=== PATIENT | male | born 1945 | race Caucasian/White ===

== ENCOUNTER 2019-03-11 07:51 | Day surgery (SDC) | payer MEDICARE, OTHER, SELFPAY ==
[2019-03-06 14:50] VITALS: BMI 22.8
[2019-03-11] VITALS (13 sets, daily range): BP systolic 99–150; BP diastolic 62–99; PULSE 69–92; RESP 10–20; TEMP 36.1–36.6; O2SAT 97–100; BMI 22.4
[2019-03-11] MEDS: LACTATED RINGERS 1,000 ML 42 ML IV ×2 (08:23→10:23)
--- NOTE | 2019-03-11 09:09 | PM.PREOP ---
Pre-operative Note Interval Note History & Physical reviewed/Exam performed by Physician: Yes Changes to H&P: No
[2019-03-11] MEDS: CEFAZOLIN 2 GM/100 ML FROZ.PIGGY IV (09:30)
--- NOTE | 2019-03-11 10:03 | SUR.OPER ---
Supine on padded OR bed, head on pillow, arms padded and tucked at side, legs uncrossed, safety belt at thigh, tape over blanket over lower legs .
[2019-03-11] MEDS: BUPIVACAINE 0.25% (PF) VIAL 30 ML INJ (10:08)
--- NOTE | 2019-03-11 11:02 | PM.OP.1 ---
Operative Date/Time/Diagnoses Date of procedure: 03/11/19 Time of procedure: 11:02 Pre-op diagnosis: Right inguinal hernia Post-op diagnosis: same Procedure & Clinicians Procedure: Laparoscopic transabdominal preperitoneal repair of right inguinal hernia with mesh Same procedure as scheduled: Yes Indications: 73-year-old male with a symptomatic right inguinal hernia presents for elective repair Surgeon: Red Carlson Click Yes if Unassisted: No Anesthesia Type: General Operative Notes Findings: Direct and indirect right inguinal hernia no left inguinal hernia Specimen(s): none sent Estimated Blood Loss (mL): 10 Procedure in detail: The patient was brought to the operating room and placed supine on the table. Bilateral sequential compression devices were applied. General anesthesia was induced and they were intubated with an endotracheal tube. A sanchez cath was placed in sterile fashion. They received 2 g ancef prior to skin incision. They were prepped and draped in sterile fashion. A time out was performed to ensure the correct patient, procedure and necessary equipment within the operating room. The skin was infiltrated with 0.25% bupivicaine. A 5 mm infra umbilical midline incision was made. The umbilical stalk was elevated the fascia sharply incised and the abdomen entered traumatically. A 5mm port was placed and pneumoperitoneum was established at 15mm Hg. Insepction of the abdomen demonstrated no evidence of injury upon entry. A cutdown was made on the right lateral abdominal wall at the level of the umbilicus and a 10 mm balloon trocar was then placed through the incision. 5 mm incision was placed in the left lateral position the level of the umbilicus and a 5 mm trocar was then placed through this. A right direct and indirect hernia was observed. There was no major left inguinal hernia. The right vas deferns the spermatic vessels were identified and protected. The peritoneum 4 cm superior to the deep inguinal ring between the medial umbilical ligament and the anterior superior iliac spine was incised. The peritoneal flap was retracted and the preperitoneal tissue was dissected off the flap beginning lateral to the inferior epigastric artery and towards the ASIS and to posterior limit of the psoas muscle to develop the lateral aspect of the pocket. Next the peritoneum medial to the inferior epigastric was mobilized towards the median umbilical ligament to develop the medial aspect of the pocket and the direct defect was reduced. The space of Retzius was fully dissected such that the Jordi's ligmament and the pubic symphysis were visible. Next, the peritoneum was mobilized off the the spermatic vessels and vas deferns and fully exposed to the point where the vas deferens intersects with the medial umbilical ligament and the indirect hernia was reduced. A medium Bard 3D Max mesh was then placed into the abdomen and positioned such that the myopectineal orifice was completely covered with good overlap on all sides. The mesh was anchored to the pubic tubercle and to Jordi?s ligament. The peritoneal flap was then repositioned back to its original position and tacks were used to anchor it in position such that no bowel could herniate into the preperitoneal space. The area was examined for hemostasis. The 5mm trocars were removed under direct visualization and pneumoperitoneum was deflated through the umbilical trocar, The fascia at the right lateral incision was closed with 0-Vicryl in figure of 8 fashion, skin closed with 4-0 Monocyl followed by Dermabond. The sponge and instrument count at the end of the case was correct. Both testicles were entirely within the scrotum at the end of the case. The patient emerged from anesthsia was extubated and transferred to recovery in stable condition. Complications: none Post-operative Condition: stable Disposition: same day surgery
[2019-03-11] MEDS: fentaNYL 100 MCG/2 ML INJ IV ×2 (11:06→11:14)
[2019-03-11] MEDS: ONDANSETRON 4 MG/2 ML INJ IV (11:10)
[2019-03-11] MEDS: OXYCODONE/ACETAMINOPHEN 5/325 TABLET 1 TAB PO ×2 (11:40→12:40)
--- NOTE | 2019-03-11 11:50 | SUR.PHASEII ---
pt arrived to phase II via stretcher. pt sitting up and drinking water. Drsg's to surgical site observed to be c/d/i. pt denies any nausea this time. pt rating his pain 5/10 at this time and reports it is tolerable. bed in lowest position and call light given to pt.
--- NOTE | 2019-03-11 12:49 | SUR.PHASEII ---
1240 Rx given prior to discharge, pt states that pain level is increasing for a 2-3 to 4-5. Calm, stable, relaxed. No questions from patient or spouse. Dr. Carlson spoke with pt and spouse.
--- NOTE | 2019-03-11 12:55 | SUR.PHASEII ---
1210 Assumed care from Roberta Barron RN. Pt awake, stable, tolerating PO well, Feels like he is ready to discharge, would like another pain pill, waiting for prescription for post-op pain med.
== END 2019-03-11 12:45 | disposition home or self-care (01) ==
PROVIDERS: Visit Provider Surgery
PROC: 0YQ54ZZ Repair Right Inguinal Region, Percutaneous Endoscopic Approach (ICD-10-PCS; CPT 49650; principal; 2019-03-11 09:15)
DX: K40.90 Unilateral inguinal hernia, without obstruction or gangrene, not specified as recurrent (principal)
CPT/HCPCS: 49650; C1781; J0690; J1100; J2250; J2405; J2704; J3010

== ENCOUNTER → 2020-06-24 14:33 | Outpatient (CLI) | payer MEDICARE, OTHER, SELFPAY ==
[2020-06-24] MEDS: COVID-19 VACC, Ad26(JANSSEN)/PF 0.5 ML IM (14:56)
== END ==
PROVIDERS: Visit Provider Internal Medicine
DX: Z23 Encounter for immunization (principal)
CPT/HCPCS: 0031A; 91303

== ENCOUNTER → 2022-04-17 14:22 | Outpatient (CLI) | payer MEDICARE, OTHER, SELFPAY ==
[2022-04-17 15:19] LABS: Influenza A - CEPHEID Flu A NEGATIVE (NEGATIVE); Influenza B - CEPHEID Flu B NEGATIVE (NEGATIVE); Respiratory Syncytial Virus Negative (Negative)
[2022-04-17 15:24] LABS: COVID-19 CEPHEID 4-PLEX PCR Negative (Negative)
== END ==
PROVIDERS: Visit Provider Registered Nurse
DX: R05.1 Acute cough (principal)
CPT/HCPCS: 0241U

== ENCOUNTER → 2022-05-10 14:22 | Outpatient (CLI) | payer MEDICARE, OTHER, SELFPAY ==
[2022-05-10 14:56] LABS: Add Manual Diff / Slide Review NO; Basophils Absolute Auto 100 /uL (0-100); Basophils Percent Auto 1.1 % (0-2); Eosinophils Absolute Auto 200 /uL (0-450); Eosinophils Percent Auto 2.1 % (2-4); Hematocrit 39.8 % (41-53); Hemoglobin 13.3 g/dL (13.5-17.5); Lymphocytes Absolute Auto 1200 /uL (1100-4500); Lymphocytes Percent Auto 16.5 % (25-40); Mean Corpuscular HGB Conc 33.4 % (30-36); Mean Corpuscular Hemoglobin 28.9 PG (26-34); Mean Corpuscular Volume 86.7 fL (80-100); Monocytes Absolute Auto 600 /uL (0-900); Monocytes Percent Auto 7.6 % (3-14); Neutrophils Absolute Auto 5500 /uL (1500-7000); Neutrophils Percent Auto 72.7 % (50-75); Platelet Count 318 X10^3/uL (150-400); Red Blood Cell Count 4.59 X10^6/uL (4.5-5.9); Red Cell Distribution Width 13.5 % (11.6-14.8); White Blood Cell Count 7.6 X10^3/uL (4.5-11.0)
[2022-05-10 15:27] LABS: Hemoglobin A1C% w Est Avg Glu 5.3 % (4.0-6.0)
[2022-05-10 15:28] LABS: Alanine Aminotransferase 24 IU/L (<50); Albumin Globulin Ratio 1.2 (1.0-2.8); Alkaline Phosphatase 122 U/L (38-126); Aspartate Aminotransferase 26 IU/L (17-59); BUN Creatinine Ratio 28.9 (6-22); Bilirubin Total 0.5 mg/dL (0.2-1.3); Blood Urea Nitrogen 22 mg/dL (9-20); Calcium 8.5 mg/dL (8.4-10.2); Carbon Dioxide 28 mmol/L (22-32); Chloride 95 mmol/L (98-107); Cholesterol 166 mg/dL (140-199); Estimated Glomerular Filt Rate > 60 mL/min (>60); Globulin 3.3 g/dL (1.7-4.1); Glucose 93 mg/dL (80-110); HDL Cholesterol 29 mg/dL (40-60); HEMOLYSIS < 15 (0-50); LDL Cholesterol Calculated 103 mg/dL (<100); Potassium 4.7 mmol/L (3.4-5.1); Sodium 132 mmol/L (137-145); Total Protein 7.3 g/dL (6.3-8.2); Triglycerides 170 mg/dL (35-150)
[2022-05-10 16:06] LABS: TSH w/ Reflex to FT4 < 0.02 uIU/mL (0.47-4.68)
[2022-05-10 16:42] LABS: Free T4, Direct Thyroxine 1.64 ng/dL (0.78-2.19)
== END ==
PROVIDERS: PCP Family Medicine; Referring Provider Family Medicine; Visit Provider Family Medicine
DX: E03.8 Other specified hypothyroidism (principal); Z13.1 Encounter for screening for diabetes mellitus; Z13.220 Encounter for screening for lipoid disorders; Z00.00 Encounter for general adult medical examination without abnormal findings; R53.83 Other fatigue
CPT/HCPCS: 36415; 80053; 80061; 83036; 84439; 84443; 85025

== ENCOUNTER → 2022-06-19 11:28 | Outpatient (CLI) | payer MEDICARE, OTHER, SELFPAY | PROVIDERS: PCP Family Medicine; Visit Provider Family Medicine | DX: Z12.5 Encounter for screening for malignant neoplasm of prostate (principal); N40.0 Benign prostatic hyperplasia without lower urinary tract symptoms; E03.8 Other specified hypothyroidism; R31.9 Hematuria, unspecified; Z00.00 Encounter for general adult medical examination without abnormal findings; R30.0 Dysuria | CPT/HCPCS: 87086 ==

== ENCOUNTER → 2022-06-19 11:57 | Outpatient (CLI) | payer MEDICARE, OTHER, SELFPAY ==
[2022-06-19 13:46] LABS: TSH w/ Reflex to FT4 0.09 uIU/mL (0.47-4.68)
[2022-06-19 14:13] LABS: Free T4, Direct Thyroxine 1.51 ng/dL (0.78-2.19)
[2022-06-19 16:10] LABS: Prostate Specific Antigen Scrn 170 ng/mL (0.1-4.0)
== END ==
PROVIDERS: PCP Family Medicine; Referring Provider Family Medicine; Visit Provider Family Medicine
DX: Z00.00 Encounter for general adult medical examination without abnormal findings (principal); Z12.5 Encounter for screening for malignant neoplasm of prostate; E03.8 Other specified hypothyroidism; N40.0 Benign prostatic hyperplasia without lower urinary tract symptoms; R30.0 Dysuria; R31.9 Hematuria, unspecified
CPT/HCPCS: 36415; 84439; 84443; 87086; G0103

== ENCOUNTER → 2022-07-19 10:17 | Outpatient (CLI) | payer MEDICARE, OTHER, SELFPAY ==
[2022-07-19 13:14] LABS: Prostate Specific Antigen 135 ng/mL (0.10-4.00)
== END ==
PROVIDERS: PCP Family Medicine; Referring Provider Specialist; Visit Provider Specialist
DX: N40.3 Nodular prostate with lower urinary tract symptoms (principal); N13.8 Other obstructive and reflux uropathy; R33.9 Retention of urine, unspecified; R97.20 Elevated prostate specific antigen [PSA]; N43.3 Hydrocele, unspecified
CPT/HCPCS: 36415; 51798; 81002; 84153; 99215

== ENCOUNTER 2022-08-15 07:38 | Observation (INO) | payer MEDICARE, OTHER, SELFPAY ==
[2022-08-15] VITALS (55 sets, daily range): BP systolic 77–160; BP diastolic 52–120; PULSE 62–160; RESP 10–35; TEMP 35.9–36.7; O2SAT 89–100; BMI 24.4
--- NOTE | 2022-08-15 07:55 | DI.RAD.S_ITS ---
PROCEDURE: XR CHEST 1V INDICATIONS: chest pain TECHNIQUE: One view of the chest was acquired. COMPARISON: None. FINDINGS: Surgical changes and devices: None. Lungs and pleura: Mild opacity seen in the left perihilar region. Low lung volumes, limiting evaluation. No effusions. Mediastinum: Mediastinal contours appear normal. Heart size is normal. Bones and chest wall: No suspicious bony lesions. Overlying soft tissues appear unremarkable. IMPRESSION: Mild perihilar opacities, please correlate with any infectious or inflammatory symptoms. Consider repeat imaging depending on clinical context to assess for any underlying mass. Dictated by: Irvin Coburn M.D. on 08/15/2022 at 9:40 Approved by: Irvin Coburn M.D. on 08/15/2022 at 9:41
--- NOTE | 2022-08-15 08:03 | ED.ARRPALP ---
HPI - Arrhythmia/Palpitations General Chief Complaint: Arrhythmia/Palpitations Stated Complaint: heart rate is racing AFIB Time Seen by Provider: 08/15/22 07:56 Source: patient Mode of arrival: Ambulatory Limitations: no limitations History of Present Illness HPI narrative: Patient is a 76-year-old male. No prior history of atrial fibrillation. No prior cardiac history. States he does ride a bicycle often. He states that he went to bed last night feeling normal and when he woke up this morning he felt like his heart was racing. He is not having chest pain. No lightheadedness. Did have some lower abdominal pain this morning however he had a couple bowel movements and that has since resolved. Not on anticoagulation. He is certain that his symptoms started this morning. No fevers. Related Data Home Medications Medication Instructions Recorded Confirmed cetirizine 10 mg capsule (Zyrtec) 10 mg PO DAILY PRN Allergy Symptoms 05/04/22 08/15/22 Lactobacillus acidophilus PO DAILY 07/19/22 08/08/22 [Probiotic Acidophilus] ascorbate calcium (vitamin C) 500 500 mg PO DAILY 07/19/22 08/15/22 mg tablet famotidine 20 mg tablet 20 mg PO DAILY 07/19/22 08/15/22 (Zantac-360 (famotidine)) vitamin D3 125 mcg (5,000 125 cap PO DAILY 07/19/22 08/15/22 unit)-vitamin K2 90 mcg capsule zinc sulfate 50 mg zinc (220 mg) 50 mg PO DAILY 07/19/22 08/15/22 tablet Previous Rx's Medication Instructions Recorded fluticasone propionate 50 2 spray intranasal DAILY #16 grams 05/10/22 mcg/actuation nasal spray,suspension tamsulosin 0.4 mg capsule 0.8 mg PO BEDTIME #180 caps 08/01/22 Allergies Allergy/AdvReac Type Severity Reaction Status Date / Time No Known Drug Allergies Allergy Verified 08/08/22 11:23 Review of Systems Review of Systems ROS Unobtainable: All systems reviewed & are unremarkable except as noted in HPI and below Patient History Medical History Arthritis BPH (benign prostatic hyperplasia) Elevated blood pressure reading without diagnosis of hypertension Elevated PSA Incomplete bladder emptying Medicare annual wellness visit, subsequent Nodular prostate with urinary obstruction Prostate cancer Right hydrocele Right inguinal hernia Sinus drainage Subclinical hypothyroidism Thumb pain Surgical History Anesthesia History of hernia repair (~02/2019) Hx of bilateral cataract extraction (~2007) Hx of eye surgery (~1953) Status post Mohs surgery (~2016) Family History Brother CAD (coronary artery disease) Diabetes mellitus Hyperlipidemia Hypertension Sister Diabetes mellitus Hyperlipidemia Hypertension Social History marital status: number of children: 1 household members: spouse Smoking Status: Current some day smoker alcohol intake: current caffeine: Yes Type(s) of exercise: bicycling frequency: 3-4 times per week duration: > 90 minutes/day Smoking Status: Never smoker Substance Use Type: does not use Exam Initial Vital Signs Initial Vital Signs: Vital Signs Pulse Rate 147 H 08/15/22 07:44 Pulse Oximetry 98 08/15/22 07:44 Const General: cooperative, comfortable and No ill appearing HENMT Head: normal to inspection and normocephalic Resp Effort & Inspection: normal respiratory effort Auscultation: clear to auscultation bilaterally Cardio Rate: tachycardic Rhythm: abnormal rhythm GI Inspection: normal to inspection and non-distended Palpation: No tender Skin General: no rashes or lesions noted Neuro General: patient alert, patient awake and moves all extremities Extrem General: No edema Procedures Cardioversion Consent Signed: Yes Indication: Atrial fibrillation Stability: Stable Number of attempts (shocks): 3 Joules used: 120, 150 and 200 Cardiac rhythm post-cardioversion: Atrial fibrillation Procedural Sedation Consent signed: Yes Time out performed: No Indication: cardioversion ASA Class: II Mallampati Airway Classification: Class II Preparation: still cleaner tube applied, pulse oximeter, capnometry used, supplemental O2 applied, suction/airway equipment at bedside and IV secured Fentanyl: IV Fentanyl dose (mcg): 12 IV Propofol dose (mg): 70 Intraservice time/total sedation time (min): 15 ED Sedation Level: Moderate (Concious) Patient Tolerated Procedure: Well Complications: none Course Orders Ordered: ED Orders 08/15/22 07:51 Complete Blood Count AUTO DIFF Stat Comprehensive Metabolic Panel Stat Lipase Stat Magnesium Stat PROBNP [NT-proBNP (BNP-Adult 18+)] Urgent PTT Partial Thromboplastin Lai Stat Prothrombin Time INR Stat Troponin & CK Cardiac Panel Stat 08/15/22 07:55 XR chest 1V Stat EKG-12 Lead Stat 08/15/22 08:15 COVID19 -Nasal RAPID Stat 08/15/22 15:00 Troponin I Urgent 08/16/22 05:00 Basic Metabolic Panel DAILY Complete Blood Count AUTO DIFF DAILY Hemoglobin A1C% w Est Avg Glu Routine Magnesium DAILY TSH w/ Reflex to FT4 Routine 08/17/22 05:00 Basic Metabolic Panel DAILY Complete Blood Count AUTO DIFF DAILY Magnesium DAILY 08/18/22 05:00 Basic Metabolic Panel DAILY Complete Blood Count AUTO DIFF DAILY Magnesium DAILY Acetaminophen (Acetaminophen 325 Mg Tablet) 650 mg PO Q6H PRN PRN Reason: Fever/Mild Pain (1-3) Apixaban (Apixaban 5 Mg Tablet) 5 mg PO BID [facility] Last Admin: 08/15/22 11:22 Dose: 5 mg Documented By: PHILIPPE DILTIAZEM (Diltiazem 125 Mg/125 Ml-D5w) 125 mg in 125 mls @ 5 mls/hr IV TITRATE [facility]; Protocol Last Titration: 08/15/22 10:26 Dose: 0 mg/hr, 0 mls/hr Documented By: Titration: 08/15/22 10:23 Dose: 7.5 mg/hr, 7.5 mls/hr Documented By: Titration: 08/15/22 09:54 Dose: 7.5 mg/hr, 7.5 mls/hr Documented By: Admin: 08/15/22 09:18 Dose: 5 mg/hr, 5 mls/hr Documented By: ANNA Metoprolol Succinate (Metoprolol Er 25 Mg Tablet) 25 mg PO BID [facility] Last Admin: 08/15/22 11:22 Dose: 25 mg Documented By: PHILIPPE Naloxone HCl (Naloxone 0.4 Mg/Ml Vial) 0.2 mg IV Q2MIN PRN PRN Reason: Opiate Reversal Ondansetron HCl (Ondansetron 4 Mg/2 Ml Inj) 4 mg IV Q8HR PRN PRN Reason: Nausea And Vomiting Discontinued Medications Aspirin (Aspirin 81 Mg Chew Tab) 324 mg PO NOW ONE Stop: 08/15/22 07:56 Last Admin: 08/15/22 09:10 Dose: Not Given Documented By: ANNA Aspirin (Aspirin 81 Mg Chew Tab) 324 mg PO NOW ONE Stop: 08/15/22 09:05 Last Admin: 08/15/22 09:17 Dose: 324 mg Documented By: CTS Diltiazem HCl (Diltiazem 5 Mg/Ml Sdv) 10 mg IV NOW ONE Stop: 08/15/22 09:05 Last Admin: 08/15/22 09:18 Dose: 10 mg Documented By: ANNA Fentanyl (Fentanyl 100 Mcg/2 Ml Inj) 12.5 mcg IV NOW ONE Stop: 08/15/22 08:07 Last Admin: 08/15/22 08:18 Dose: 12.5 mcg Documented By: ANNA Sodium Chloride (Normal Saline 0.9%) 1,000 mls @ 125 mls/hr IV CONT SHANTHI Last Infusion: 08/15/22 09:19 Dose: 0 mls/hr Documented By: Admin: 08/15/22 08:15 Dose: 999 mls/hr Documented By: ANNA Metoprolol Tartrate (Metoprolol Tartrate 5 Mg/5 Ml Inj) 5 mg IV NOW ONE Stop: 08/15/22 08:27 Last Admin: 08/15/22 08:28 Dose: 5 mg Documented By: ANNA Propofol (Propofol 200 Mg/20 Ml Vial) 100 mg IV NOW ONE Stop: 08/15/22 08:07 Last Admin: 08/15/22 08:20 Dose: 70 mg Documented By: ANNA Vital Signs Vital signs: Vital Signs - 8 hr 08/15/22 07:53 08/15/22 07:44 08/15/22 07:45 Temperature 98.1 F Pulse Rate 160 H 147 H 160 H Respiratory Rate 20 26 H Blood Pressure 140/74 Pulse Oximetry 96 98 99 Oxygen Delivery Method Room Air 08/15/22 07:45 08/15/22 08:00 08/15/22 08:00 Temperature Pulse Rate 156 H Respiratory Rate 24 Blood Pressure 140/74 137/75 Pulse Oximetry 100 Oxygen Delivery Method 08/15/22 08:06 08/15/22 08:06 08/15/22 08:11 Temperature Pulse Rate 154 H Respiratory Rate 17 Blood Pressure 152/120 H 141/83 H Pulse Oximetry 99 Oxygen Delivery Method 08/15/22 08:11 08/15/22 08:40 08/15/22 08:12 Temperature Pulse Rate 153 H 160 H 154 H Respiratory Rate 22 16 25 H Blood Pressure Pulse Oximetry 100 100 Oxygen Delivery Method 08/15/22 08:14 08/15/22 08:15 08/15/22 08:15 Temperature Pulse Rate 157 H 158 H Respiratory Rate 26 H 20 Blood Pressure 124/80 Pulse Oximetry 100 100 Oxygen Delivery Method 08/15/22 08:16 08/15/22 08:18 08/15/22 08:19 Temperature Pulse Rate 157 H 152 H 155 H Respiratory Rate 23 29 H 21 Blood Pressure Pulse Oximetry 100 99 99 Oxygen Delivery Method 08/15/22 08:19 08/15/22 08:20 08/15/22 08:20 Temperature Pulse Rate 152 H Respiratory Rate 21 Blood Pressure 127/67 141/96 H Pulse Oximetry 99 Oxygen Delivery Method 08/15/22 08:22 08/15/22 08:22 08/15/22 08:24 Temperature Pulse Rate 102 H 148 H Respiratory Rate 19 18 Blood Pressure 131/80 Pulse Oximetry 98 94 Oxygen Delivery Method 08/15/22 08:25 08/15/22 08:25 08/15/22 08:26 Temperature Pulse Rate 153 H Respiratory Rate 21 Blood Pressure 113/55 L 115/66 Pulse Oximetry 93 Oxygen Delivery Method 08/15/22 08:26 08/15/22 08:28 08/15/22 08:28 Temperature Pulse Rate 151 H 158 H Respiratory Rate 18 16 Blood Pressure 99/58 L Pulse Oximetry 95 96 Oxygen Delivery Method 08/15/22 08:30 08/15/22 08:30 08/15/22 08:32 Temperature Pulse Rate 153 H Respiratory Rate 16 Blood Pressure 82/54 L 82/52 L Pulse Oximetry 97 Oxygen Delivery Method 08/15/22 08:32 08/15/22 08:34 08/15/22 08:34 Temperature Pulse Rate 147 H 144 H Respiratory Rate 17 19 Blood Pressure 85/62 L Pulse Oximetry 97 98 Oxygen Delivery Method 08/15/22 08:36 08/15/22 08:36 08/15/22 08:38 Temperature Pulse Rate 148 H 141 H Respiratory Rate 19 26 H Blood Pressure 83/52 L Pulse Oximetry 98 98 Oxygen Delivery Method 08/15/22 08:39 08/15/22 08:39 08/15/22 08:40 Temperature Pulse Rate 141 H Respiratory Rate 26 H Blood Pressure 77/54 L 97/60 Pulse Oximetry 98 Oxygen Delivery Method 08/15/22 08:40 08/15/22 08:42 08/15/22 08:43 Temperature Pulse Rate 137 H 143 H Respiratory Rate 15 25 H Blood Pressure 96/69 Pulse Oximetry 97 97 Oxygen Delivery Method 08/15/22 08:43 08/15/22 08:44 08/15/22 08:44 Temperature Pulse Rate 143 H 139 H Respiratory Rate 17 22 Blood Pressure 106/83 Pulse Oximetry 97 97 Oxygen Delivery Method 08/15/22 08:46 08/15/22 08:46 08/15/22 08:48 Temperature Pulse Rate 136 H Respiratory Rate 18 Blood Pressure 99/61 100/61 Pulse Oximetry 94 Oxygen Delivery Method 08/15/22 08:48 08/15/22 08:50 08/15/22 08:50 Temperature Pulse Rate 136 H 147 H Respiratory Rate 16 21 Blood Pressure 101/60 Pulse Oximetry 96 96 Oxygen Delivery Method 08/15/22 09:18 08/15/22 08:52 08/15/22 08:52 Temperature Pulse Rate 145 H 135 H Respiratory Rate 13 Blood Pressure 116/75 102/64 Pulse Oximetry 97 Oxygen Delivery Method 08/15/22 08:54 08/15/22 08:54 08/15/22 09:00 Temperature Pulse Rate 145 H Respiratory Rate 21 Blood Pressure 111/67 116/75 Pulse Oximetry 94 Oxygen Delivery Method 08/15/22 09:00 08/15/22 09:15 08/15/22 09:20 Temperature Pulse Rate 142 H 139 H 136 H Respiratory Rate 10 L 18 16 Blood Pressure Pulse Oximetry 97 97 99 Oxygen Delivery Method 08/15/22 09:20 08/15/22 09:30 08/15/22 09:30 Temperature Pulse Rate 141 H Respiratory Rate 28 H Blood Pressure 153/59 H 160/67 H Pulse Oximetry 99 Oxygen Delivery Method MDM - Arrhythmia/Palpitations Lab Data Attestation: I reviewed the patient's lab results. 08/15/22 07:51 08/15/22 07:51 Labs: Lab Results 08/15/22 08/15/22 08/15/22 Range/Units 07:51 07:51 07:51 WBC 6.0 (4.5-11.0) X10^3/uL RBC 5.03 (4.5-5.9) X10^6/uL Hgb 15.0 (13.5-17.5) g/dL Hct 43.6 (41-53) % MCV 86.8 (80-100) fL MCH 29.8 (26-34) PG MCHC 34.3 (30-36) % RDW 14.1 (11.6-14.8) % Plt Count 202 (150-400) X10^3/uL Neut % (Auto) 54.7 (50-75) % Lymph % (Auto) 30.8 (25-40) % [place] % (Auto) 9.2 (3-14) % Eos % (Auto) 4.4 H (2-4) % Baso % (Auto) 0.9 (0-2) % Neut # (Auto) 3300 (0758-9158) /uL Lymph # (Auto) 1800 (9535-0185) /uL [place] # (Auto) 600 (0-900) /uL Eos # (Auto) 300 (0-450) /uL Baso # (Auto) 100 (0-100) /uL PT 11.8 (10.1-12.7) SECONDS INR 1.0 (0.9-1.3) APTT 31 (26-36) SECONDS Sodium 135 L (137-145) mmol/L Potassium 4.1 (3.4-5.1) mmol/L Chloride 101 (98-107) mmol/L Carbon Dioxide 25 (22-32) mmol/L BUN 23 H (9-20) mg/dL Creatinine 0.81 (0.66-1.25) mg/dL Estimated GFR > 60 (>60) mL/min BUN/Creatinine Ratio 28.4 H (6-22) Glucose 101 (80-110) mg/dL Calcium 8.4 (8.4-10.2) mg/dL Magnesium 2.0 (1.6-2.3) mg/dL Total Bilirubin 0.6 (0.2-1.3) mg/dL AST 34 (17-59) IU/L ALT 32 (<50) IU/L Alkaline Phosphatase 92 (38-126) U/L Total Creatine Kinase 75 (55-170) U/L CK-MB (CK-2) TNP CK-MB (CK-2) Rel Index TNP Troponin I < 0.012 (0.01-0.034) ng/mL NT-Pro-B Natriuret Pep (<450) pg/mL Total Protein 7.0 (6.3-8.2) g/dL Albumin 4.4 (3.5-5.0) g/dL Globulin 2.6 (1.7-4.1) g/dL Albumin/Globulin Ratio 1.7 (1.0-2.8) Lipase 45 (23-300) U/L SARS-CoV-2 (PCR) (Negative) 08/15/22 08/15/22 Range/Units 07:51 08:15 WBC (4.5-11.0) X10^3/uL RBC (4.5-5.9) X10^6/uL Hgb (13.5-17.5) g/dL Hct (41-53) % MCV (80-100) fL MCH (26-34) PG MCHC (30-36) % RDW (11.6-14.8) % Plt Count (150-400) X10^3/uL Neut % (Auto) (50-75) % Lymph % (Auto) (25-40) % [place] % (Auto) (3-14) % Eos % (Auto) (2-4) % Baso % (Auto) (0-2) % Neut # (Auto) (1121-0819) /uL Lymph # (Auto) (5972-0109) /uL [place] # (Auto) (0-900) /uL Eos # (Auto) (0-450) /uL Baso # (Auto) (0-100) /uL PT (10.1-12.7) SECONDS INR (0.9-1.3) APTT (26-36) SECONDS Sodium (137-145) mmol/L Potassium (3.4-5.1) mmol/L Chloride (98-107) mmol/L Carbon Dioxide (22-32) mmol/L BUN (9-20) mg/dL Creatinine (0.66-1.25) mg/dL Estimated GFR (>60) mL/min BUN/Creatinine Ratio (6-22) Glucose (80-110) mg/dL Calcium (8.4-10.2) mg/dL Magnesium (1.6-2.3) mg/dL Total Bilirubin (0.2-1.3) mg/dL AST (17-59) IU/L ALT (<50) IU/L Alkaline Phosphatase (38-126) U/L Total Creatine Kinase (55-170) U/L CK-MB (CK-2) CK-MB (CK-2) Rel Index Troponin I (0.01-0.034) ng/mL NT-Pro-B Natriuret Pep 349 (<450) pg/mL Total Protein (6.3-8.2) g/dL Albumin (3.5-5.0) g/dL Globulin (1.7-4.1) g/dL Albumin/Globulin Ratio (1.0-2.8) Lipase (23-300) U/L SARS-CoV-2 (PCR) Negative (Negative) Imaging Data Chest x-ray: Radiologist's Impresson: PROCEDURE:? XR CHEST 1V ? INDICATIONS:? chest pain ? TECHNIQUE:? One view of the chest was acquired.? ? COMPARISON:? None. ? FINDINGS:? ? Surgical changes and devices:? None.? ? Lungs and pleura:? Mild opacity seen in the left perihilar region.? Low lung volumes, limiting evaluation.? No effusions. ? Mediastinum:? Mediastinal contours appear normal.? Heart size is normal.? ? Bones and chest wall:? No suspicious bony lesions.? Overlying soft tissues appear unremarkable.? ? IMPRESSION:? Mild perihilar opacities, please correlate with any infectious or inflammatory symptoms.? Consider repeat imaging depending on clinical context to assess for any underlying mass ECG Data Attestation: I personally reviewed and interpreted this ECG as follows: Interpretation: Atrial fibrillation Ventricular rate 155 Normal axis Normal QRS Normal QTC No ST T wave changes MDM Narrative Medical decision making narrative: Three attempts at cardioversion were unsuccessful. Other than that the sedation in the cardioversion was unremarkable. Patient was given oral metoprolol and this only improved his heart rate very small amount. He was then started on Cardizem. No chest pain. Given his presentation and the unsuccessful cardioversion patient does require admission to the hospital for rate control. I did discuss this with the patient and his . Also discussed the case with Dr. Rodriguez nut sorter operator on-call who will admit for further evaluation and treatment. Discharge Plan Departure Patient Disposition: Admitted as Observation Clinical Impression: Atrial fibrillation with RVR Admit Date/Time: 08/15/22 09:42 Admit Provider: Harsh Rodriguez
[2022-08-15 08:09] LABS: Add Manual Diff / Slide Review NO; Basophils Absolute Auto 100 /uL (0-100); Basophils Percent Auto 0.9 % (0-2); Eosinophils Absolute Auto 300 /uL (0-450); Eosinophils Percent Auto 4.4 % (2-4); Hematocrit 43.6 % (41-53); Lymphocytes Absolute Auto 1800 /uL (1100-4500); Lymphocytes Percent Auto 30.8 % (25-40); Mean Corpuscular HGB Conc 34.3 % (30-36); Mean Corpuscular Hemoglobin 29.8 PG (26-34); Mean Corpuscular Volume 86.8 fL (80-100); Monocytes Absolute Auto 600 /uL (0-900); Monocytes Percent Auto 9.2 % (3-14); Neutrophils Absolute Auto 3300 /uL (1500-7000); Neutrophils Percent Auto 54.7 % (50-75); Platelet Count 202 X10^3/uL (150-400); Red Blood Cell Count 5.03 X10^6/uL (4.5-5.9); Red Cell Distribution Width 14.1 % (11.6-14.8)
[2022-08-15] MEDS: SODIUM CHLORIDE 0.9% 1,000 ML 999 ML IV (08:15)
[2022-08-15] MEDS: fentaNYL 100 MCG/2 ML INJ 12.5 MCG IV (08:18)
[2022-08-15 08:19] LABS: Prothrombin Time 11.8 SECONDS (10.1-12.7)
[2022-08-15] MEDS: propofoL 200 MG/20 ML VIAL 100 MG IV (08:20)
[2022-08-15 08:22] LABS: PTT Partial Thromboplastin Tim 31 SECONDS (26-36)
[2022-08-15] MEDS: METOPROLOL TARTRATE 5 MG/5 ML INJ IV (08:28)
[2022-08-15 08:36] LABS: COVID19 -Nasal RAPID Negative (Negative)
[2022-08-15 09:02] LABS: Alanine Aminotransferase 32 IU/L (<50); Albumin 4.4 g/dL (3.5-5.0); Albumin Globulin Ratio 1.7 (1.0-2.8); Alkaline Phosphatase 92 U/L (38-126); Aspartate Aminotransferase 34 IU/L (17-59); BUN Creatinine Ratio 28.4 (6-22); Bilirubin Total 0.6 mg/dL (0.2-1.3); Blood Urea Nitrogen 23 mg/dL (9-20); Calcium 8.4 mg/dL (8.4-10.2); Carbon Dioxide 25 mmol/L (22-32); Creatine Kinase 75 U/L (55-170); Estimated Glomerular Filt Rate > 60 mL/min (>60); Globulin 2.6 g/dL (1.7-4.1); Glucose 101 mg/dL (80-110); HEMOLYSIS 16 (0-50); Lipase 45 U/L (23-300)
[2022-08-15 09:07] LABS: Chloride 101 mmol/L (98-107); Potassium 4.1 mmol/L (3.4-5.1); Sodium 135 mmol/L (137-145)
[2022-08-15 09:14] LABS: Troponin I < 0.012 ng/mL (0.01-0.034)
[2022-08-15] MEDS: ASPIRIN 81 MG CHEW TAB 324 MG PO (09:17)
[2022-08-15] MEDS: DILTIAZEM 125 MG/125 ML PIGGYBACK IV (09:18)
[2022-08-15] MEDS: dilTIAZem 5 MG/ML SDV 10 MG IV (09:18)
[2022-08-15 10:01] LABS: NT-proBNP (BNP-Adult 18+) 349 pg/mL (<450)
[2022-08-15] MEDS: METOPROLOL ER 25 MG TABLET PO (11:22)
[2022-08-15] MEDS: APIXABAN 5 MG TABLET PO (11:22)
--- NOTE | 2022-08-15 11:41 | DI.ECHO.S_ITS ---
[facility] +---------+ : : [address] : [address] [place] : : : : [id number] : : : : Phone: [phone]+ Echocardiogram Report + + :Name: DERICK BARROW Study Date: 08/15/2022 Height: 73 in : :[facility] ReadingLocation: Weight: 185 lb : : Gender: Male BSA: 2.1 m2 : :: 1945 Age: 76 yrs BP: 100/66 mmHg: :Reason For Study: ATRIAL FIBRILLATION : :Ordering Physician: EKTA, : :MILEY LOWE Performed By: Brandi Jack : :Referring: MILEY DASH : + + Interpretation Summary Normal sinus rhythm. Normal LV size, wall thickness, wall motion and LV systolic function. EF is 60-65%. Normal chamber sizes. No significant valvular abnormalities. NO prior study available for comparison. Procedure: A two-dimensional transthoracic echocardiogram with color flow and Doppler was performed. The study quality was technically adequate. There is no prior echocardiogram noted for this patient. The patient was in sinus rhythm with heart rates between 63-71 bpm during the exam. Left Ventricle: The left ventricle is normal in size and wall thickness. The ejection fraction is estimated to be 60-65%. Right Ventricle: The right ventricle is normal in size and function. Atria: The left atrial size is normal. Right atrial size is normal. There is no Doppler evidence for an interatrial shunt. Mitral Valve: The mitral valve is normal in structure and function. There is mild mitral regurgitation. Aortic Valve: The aortic valve is normal in structure and function. The aortic valve opens well. There is no aortic valve stenosis. No aortic regurgitation is present. Tricuspid Valve: The tricuspid valve is normal in structure and function. There is mild tricuspid regurgitation. The right ventricular systolic pressure is estimated to be at least 22 mmHg based on an estimated right atrial pressure of 3 mm Hg. Pulmonic Valve: The pulmonic valve leaflets are thin and pliable; valve motion is normal. There is mild pulmonic regurgitation. Great Vessels: The aortic root is normal size. The dimensions of the ascending aorta are normal. The IVC is of normal diameter and collapses greater than 50% with a sniff. This suggests a low right atrial pressure of 3 mm Hg. Pericardium/ Pleura There is no pericardial effusion. There is no pleural effusion. MMode/2D Measurements & Calculations LVIDd: 4.8 cm LVOT diam: 2.0 cm LVIDs: 3.1 cm Ao root diam: 3.1 cm FS: 35.0 % asc Aorta Diam: 3.7 cm EPSS: 0.66 cm IVSd: 0.65 cm LVPWd: 0.82 cm LV ortega. diameter/BSA (cm/m^2): 2.3 LV sys. diameter/BSA (cm/m^2): 1.5 LA A2 area: 19.2 cm2 RA long axis: 5.4 cm LA A4 area: 18.7 cm2 RA area: 16.1 cm2 LA length (vol): 5.5 cm RA vol: 40.4 ml LA vol: 55.3 ml RA : 19.4 ml/m2 LA vol index: 26.6 ml/m2 IVC diam: 2.0 cm RVD1 (basal): 3.9 cm RVD2 (mid): 2.8 cm TAPSE: 2.1 cm Doppler Measurements & Calculations Ao V2 max: 114.1 cm/sec LVOT Max Usman: 107.1 cm/sec Ao V2 mean: 80.4 cm/sec LV V1 max P.6 mmHg Ao max P.2 mmHg LV V1 VTI: 22.4 cm Ao mean P.8 mmHg SHELLY(I,D): 3.1 cm2 Ao V2 VTI: 23.9 cm SHELLY(V,D): 3.1 cm2 sev ratio: 0.94 SHELLY indexed to BSA (cm^2/m^2): 1.5 MV E max usman: 76.0 cm/sec TR max usman: 216.2 cm/sec MV A max usman: 82.3 cm/sec TR max P.7 mmHg MV E/A: 0.92 PA V2 max: 74.1 cm/sec Med Peak E' Usman: 9.2 cm/sec PA V2 mean: 54.2 cm/sec E/E' med: 8.3 PA mean P.3 mmHg Lat Peak E' Usman: 10.1 cm/sec PA pr(Accel): 41.3 mmHg E/E' lat: 7.5 E/e' average: 7.9 MV dec time: 0.18 sec SV(LVOT): 73.4 ml Electronically signed by: Mirella Bettencourt M.D. on Reading Physician:08/15/2022 04:04 PM
[2022-08-15 11:50] LABS: MRSA (Nasal) PCR Not Detected (Not Detect)
--- NOTE | 2022-08-15 13:18 | PM.HP.1 ---
History of Present Illness History of Present Illness Date Patient Seen: 08/15/22 Time Patient Seen: 11:30 Chief complaint: heart rate is racing AFIB Narrative: 76 M with PMH of BPH, recent dx of prostate cancer, chronic allergic rhinitis who presented to the hospital with palpitations and tachycardia. He denies previous symptoms of palpitations, dyspnea, dyspnea on exertion, LE edema, chest pain, nausea vomiting. During this episode, he was slightly lightheaded but did not have syncope. He denied chest pain, arm pain / numbness / tingling, neck discomfort. He denies recent fever, chills. He does have chronic allergies with rhinorrhea. EKG showed afib with RVR without evidence of ischemia. CXR was unremarkable. He was sedated in the ER for cardioversion, failed 3x attempts with ER provider. He was given IV metoprolol with minimal effect, then started on diltiazem infusion and admitted to the hospitalist service. He quickly coverted to sinus rhythm after arrival to the hospital floor. He was monitored for a few hours after conversion without recurrence. He was started on 25 mg BID of oral metoprolol. Echocardiogram performed which was unremarkable. He was started on eliquis as well. Troponins were negative. Patient elected for discharge home after brief observation stay. [facility] Medical History Arthritis BPH (benign prostatic hyperplasia) Elevated blood pressure reading without diagnosis of hypertension Elevated PSA Incomplete bladder emptying Medicare annual wellness visit, subsequent Nodular prostate with urinary obstruction Prostate cancer Right hydrocele Right inguinal hernia Sinus drainage Subclinical hypothyroidism Thumb pain Surgical History Anesthesia History of hernia repair (~02/2019) Hx of bilateral cataract extraction (~2007) Hx of eye surgery (~1953) Status post Mohs surgery (~2016) Family History Brother CAD (coronary artery disease) Diabetes mellitus Hyperlipidemia Hypertension Sister Diabetes mellitus Hyperlipidemia Hypertension Social History marital status: number of children: 1 household members: spouse Smoking Status: Current some day smoker alcohol intake: current caffeine: Yes Type(s) of exercise: bicycling frequency: 3-4 times per week duration: > 90 minutes/day Meds Home Medications and Allergies Home Medications Medication Instructions Recorded Confirmed Type cetirizine 10 mg capsule (Zyrtec) 10 mg PO DAILY PRN Allergy Symptoms 05/04/22 08/15/22 History fluticasone propionate 50 2 spray intranasal DAILY #16 grams 05/10/22 08/15/22 Rx mcg/actuation nasal spray,suspension Lactobacillus acidophilus PO DAILY 07/19/22 08/08/22 History [Probiotic Acidophilus] ascorbate calcium (vitamin C) 500 500 mg PO DAILY 07/19/22 08/15/22 History mg tablet famotidine 20 mg tablet 20 mg PO DAILY 07/19/22 08/15/22 History (Zantac-360 (famotidine)) vitamin D3 125 mcg (5,000 125 cap PO DAILY 07/19/22 08/15/22 History unit)-vitamin K2 90 mcg capsule zinc sulfate 50 mg zinc (220 mg) 50 mg PO DAILY 07/19/22 08/15/22 History tablet tamsulosin 0.4 mg capsule 0.8 mg PO BEDTIME #180 caps 08/01/22 08/15/22 Rx apixaban 5 mg tablet 5 mg PO BID 30 days #60 tabs 08/15/22 Rx metoprolol succinate 25 mg 25 mg PO BID 30 days #60 tabs 08/15/22 Rx tablet,extended release 24 hr Allergies Allergy/AdvReac Type Severity Reaction Status Date / Time No Known Drug Allergies Allergy Verified 08/08/22 11:23 Review of Systems Review of Systems Narrative: All other systems reviewed with the patient and are negative unless otherwise stated. Exam Vital Signs (past 8 hours): - 08/15/22 07:53 08/15/22 07:44 08/15/22 07:45 Temperature 98.1 F Pulse Rate 160 H 147 H 160 H Respiratory Rate 20 26 H Blood Pressure 140/74 Pulse Oximetry 96 98 99 Oxygen Delivery Method Room Air Oxygen Flow Rate 08/15/22 07:45 08/15/22 08:00 08/15/22 08:00 Temperature Pulse Rate 156 H Respiratory Rate 24 Blood Pressure 140/74 137/75 Pulse Oximetry 100 Oxygen Delivery Method Oxygen Flow Rate 08/15/22 08:06 08/15/22 08:06 08/15/22 08:11 Temperature Pulse Rate 154 H Respiratory Rate 17 Blood Pressure 152/120 H 141/83 H Pulse Oximetry 99 Oxygen Delivery Method Oxygen Flow Rate 08/15/22 08:11 08/15/22 08:40 08/15/22 08:12 Temperature Pulse Rate 153 H 160 H 154 H Respiratory Rate 22 16 25 H Blood Pressure Pulse Oximetry 100 100 Oxygen Delivery Method Oxygen Flow Rate 08/15/22 08:14 08/15/22 08:15 08/15/22 08:15 Temperature Pulse Rate 157 H 158 H Respiratory Rate 26 H 20 Blood Pressure 124/80 Pulse Oximetry 100 100 Oxygen Delivery Method Oxygen Flow Rate 08/15/22 08:16 08/15/22 08:18 08/15/22 08:19 Temperature Pulse Rate 157 H 152 H 155 H Respiratory Rate 23 29 H 21 Blood Pressure Pulse Oximetry 100 99 99 Oxygen Delivery Method Oxygen Flow Rate 08/15/22 08:19 08/15/22 08:20 08/15/22 08:20 Temperature Pulse Rate 152 H Respiratory Rate 21 Blood Pressure 127/67 141/96 H Pulse Oximetry 99 Oxygen Delivery Method Oxygen Flow Rate 08/15/22 08:22 08/15/22 08:22 08/15/22 08:24 Temperature Pulse Rate 102 H 148 H Respiratory Rate 19 18 Blood Pressure 131/80 Pulse Oximetry 98 94 Oxygen Delivery Method Oxygen Flow Rate 08/15/22 08:25 08/15/22 08:25 08/15/22 08:26 Temperature Pulse Rate 153 H Respiratory Rate 21 Blood Pressure 113/55 L 115/66 Pulse Oximetry 93 Oxygen Delivery Method Oxygen Flow Rate 08/15/22 08:26 08/15/22 08:28 08/15/22 08:28 Temperature Pulse Rate 151 H 158 H Respiratory Rate 18 16 Blood Pressure 99/58 L Pulse Oximetry 95 96 Oxygen Delivery Method Oxygen Flow Rate 08/15/22 08:30 08/15/22 08:30 08/15/22 08:32 Temperature Pulse Rate 153 H Respiratory Rate 16 Blood Pressure 82/54 L 82/52 L Pulse Oximetry 97 Oxygen Delivery Method Oxygen Flow Rate 08/15/22 08:32 08/15/22 08:34 08/15/22 08:34 Temperature Pulse Rate 147 H 144 H Respiratory Rate 17 19 Blood Pressure 85/62 L Pulse Oximetry 97 98 Oxygen Delivery Method Oxygen Flow Rate 08/15/22 08:36 08/15/22 08:36 08/15/22 08:38 Temperature Pulse Rate 148 H 141 H Respiratory Rate 19 26 H Blood Pressure 83/52 L Pulse Oximetry 98 98 Oxygen Delivery Method Oxygen Flow Rate 08/15/22 08:39 08/15/22 08:39 08/15/22 08:40 Temperature Pulse Rate 141 H Respiratory Rate 26 H Blood Pressure 77/54 L 97/60 Pulse Oximetry 98 Oxygen Delivery Method Oxygen Flow Rate 08/15/22 08:40 08/15/22 08:42 08/15/22 08:43 Temperature Pulse Rate 137 H 143 H Respiratory Rate 15 25 H Blood Pressure 96/69 Pulse Oximetry 97 97 Oxygen Delivery Method Oxygen Flow Rate 08/15/22 08:43 08/15/22 08:44 08/15/22 08:44 Temperature Pulse Rate 143 H 139 H Respiratory Rate 17 22 Blood Pressure 106/83 Pulse Oximetry 97 97 Oxygen Delivery Method Oxygen Flow Rate 08/15/22 08:46 08/15/22 08:46 08/15/22 08:48 Temperature Pulse Rate 136 H Respiratory Rate 18 Blood Pressure 99/61 100/61 Pulse Oximetry 94 Oxygen Delivery Method Oxygen Flow Rate 08/15/22 08:48 08/15/22 08:50 08/15/22 08:50 Temperature Pulse Rate 136 H 147 H Respiratory Rate 16 21 Blood Pressure 101/60 Pulse Oximetry 96 96 Oxygen Delivery Method Oxygen Flow Rate 08/15/22 09:18 08/15/22 08:52 08/15/22 08:52 Temperature Pulse Rate 145 H 135 H Respiratory Rate 13 Blood Pressure 116/75 102/64 Pulse Oximetry 97 Oxygen Delivery Method Oxygen Flow Rate 08/15/22 08:54 08/15/22 08:54 08/15/22 09:00 Temperature Pulse Rate 145 H Respiratory Rate 21 Blood Pressure 111/67 116/75 Pulse Oximetry 94 Oxygen Delivery Method Oxygen Flow Rate 08/15/22 09:00 08/15/22 09:15 08/15/22 09:20 Temperature Pulse Rate 142 H 139 H 136 H Respiratory Rate 10 L 18 16 Blood Pressure Pulse Oximetry 97 97 99 Oxygen Delivery Method Oxygen Flow Rate 08/15/22 09:20 08/15/22 09:30 08/15/22 09:30 Temperature Pulse Rate 141 H Respiratory Rate 28 H Blood Pressure 153/59 H 160/67 H Pulse Oximetry 99 Oxygen Delivery Method Oxygen Flow Rate 08/15/22 09:45 08/15/22 09:46 08/15/22 09:46 Temperature Pulse Rate 147 H 145 H Respiratory Rate 18 17 Blood Pressure 104/56 L Pulse Oximetry 99 98 Oxygen Delivery Method Oxygen Flow Rate 08/15/22 10:00 08/15/22 10:00 08/15/22 10:18 Temperature Pulse Rate 146 H 142 H Respiratory Rate 19 24 Blood Pressure 94/59 L Pulse Oximetry 98 89 L Oxygen Delivery Method Oxygen Flow Rate 08/15/22 10:18 08/15/22 10:13 08/15/22 11:22 Temperature 96.6 F L Pulse Rate 141 H 66 Respiratory Rate 28 H Blood Pressure 100/66 100/66 100/86 Pulse Oximetry 95 Oxygen Delivery Method Oxygen Flow Rate 0 08/15/22 12:20 Temperature Pulse Rate 68 Respiratory Rate Blood Pressure 100/66 Pulse Oximetry Oxygen Delivery Method Oxygen Flow Rate Oxygen Delivery Method Room Air Oxygen Flow Rate 0 Narrative Exam Narrative: General:? Patient is well developed and well nourished, in no distress at this time. HEENT:? Normocephalic, atraumatic, extraocular muscles intact, oral pharynx is clear and mucous membranes are moist. Neck: supple and symmetric, trachea is midline, no cervical adenopathy. Negative for JVD Chest:? Normal AP diameter and contour without kyphoscoliosis, no tachypnea, equal chest rise bilaterally. Lungs:? CTA b/l no wheezing rhonchi or rales. Cardio:?RRR no m/r/g. Abdomen: S NT ND. No CVA tenderness. Musculoskeletal:? Muscle strength and tone are equal within normal limits, no deformity. Extremities: No edema or joint effusions. No cyanosis or clubbing. Skin:? Pale,? Warm to touch,dry and intact without rashes, ulcerations or petechiae.? Neuro:? Alert and orientated x3,? sensation to touch intact in all extremities, no gross deficits noted of cranial nerves. Psych:? Patient has a well-kept appearance, appropriate affect, mental status attitude thought context and judgment are appropriate for age. Objective ECG Impression: Atrial fibrillation with rapid ventricular response, without evidence active ischemia interpreted by tn Labs 08/15/22 07:51 08/15/22 07:51 Labs: Laboratory Results - last 24 hr 05/06/0808/15/22 08/15/22 07:51 07:51 07:51 WBC 6.0 RBC 5.03 Hgb 15.0 Hct 43.6 MCV 86.8 MCH 29.8 MCHC 34.3 RDW 14.1 Plt Count 202 Neut % (Auto) 54.7 Lymph % (Auto) 30.8 [place] % (Auto) 9.2 Eos % (Auto) 4.4 H Baso % (Auto) 0.9 Neut # (Auto) 3300 Lymph # (Auto) 1800 [place] # (Auto) 600 Eos # (Auto) 300 Baso # (Auto) 100 PT 11.8 INR 1.0 APTT 31 Sodium 135 L Potassium 4.1 Chloride 101 Carbon Dioxide 25 BUN 23 H Creatinine 0.81 Estimated GFR > 60 BUN/Creatinine Ratio 28.4 H Glucose 101 Calcium 8.4 Magnesium 2.0 Total Bilirubin 0.6 AST 34 ALT 32 Alkaline Phosphatase 92 Total Creatine Kinase 75 CK-MB (CK-2) TNP CK-MB (CK-2) Rel Index TNP Troponin I < 0.012 NT-Pro-B Natriuret Pep Total Protein 7.0 Albumin 4.4 Globulin 2.6 Albumin/Globulin Ratio 1.7 Lipase 45 Nasal Screen MRSA (PCR) SARS-CoV-2 (PCR) 08/15/22 08/15/22 08/15/22 07:51 08:15 10:20 WBC RBC Hgb Hct MCV MCH MCHC RDW Plt Count Neut % (Auto) Lymph % (Auto) [place] % (Auto) Eos % (Auto) Baso % (Auto) Neut # (Auto) Lymph # (Auto) [place] # (Auto) Eos # (Auto) Baso # (Auto) PT INR APTT Sodium Potassium Chloride Carbon Dioxide BUN Creatinine Estimated GFR BUN/Creatinine Ratio Glucose Calcium Magnesium Total Bilirubin AST ALT Alkaline Phosphatase Total Creatine Kinase CK-MB (CK-2) CK-MB (CK-2) Rel Index Troponin I NT-Pro-B Natriuret Pep 349 Total Protein Albumin Globulin Albumin/Globulin Ratio Lipase Nasal Screen MRSA (PCR) Not detected SARS-CoV-2 (PCR) Negative Assessment & Plan Assessment & Plan narrative: 1. paroxysmal atrial fibrillation with RVR, new diagnosis - see above history, in brief he failed cardioversion x3 in the ER. Started on diltiazem infusion with quick coversion to NSR. He was started on oral metoprolol succinate 25 mg BID, with normal blood pressures. He had no recurrence of afib after about 4 hours of monitoring. Echocardiogram was unremarkable with a normal EF and no wall motion abnormalities. He was started on oral apixban given CHADS2-VASC of 2 (age). Troponins were within normal limits and patient had no chest pain during episode of palpitations and after conversion along with reassuring EKG even in the setting of RVR. - Discussed risks and benefits of continued admission to monitor overnight for recurrence or discharge home given his well appearance, patient elected for discharge home. He was sent metoprolol and apixaban to his local pharmacy and ideally should follow up with his primary care provider in the next 1-2 weeks. 2. Prostate cancer 3. chronic allergic rhinitis. - no changes are recommended to management currently for problems 2 and 3 noted above. Code: Full, surrogate is patient's spouse I have utilized all available immediate resources to obtain, update, or review the patient's current medications. I reviewed patient's relevant imaging, and additional history was obtained from the ER provider. Discussed plan of care along with risks and benefits noted above with patient and spouse at bedside. COVID-19 COVID-19 status: Negative Scores CHADS-VASc Congestive heart failure: no Hypertension: no Age 75 years or older: yes Diabetes mellitus: no Stroke, TIA, or TE: no Vascular disease: no Age 65 to 74 years: no Sex category (female): Male CHADS-VASc Score: 2 Quality MIPS - Admit I confirm the patient?s Advance Care Plan is present, Code status is documented, Surrogate decision maker is in patient?s record [If Yes, STOP here]: Yes
[2022-08-15 15:53] LABS: Troponin I 0.032 ng/mL (0.01-0.034)
--- NOTE | 2022-08-15 18:18 | P.DS_ITS ---
History of Present Illness History of Present Illness Date Patient Seen: 08/15/22 Time Patient Seen: 16:00 Chief complaint: heart rate is racing AFIB Narrative: 76 M with PMH of BPH, recent dx of prostate cancer, chronic allergic rhinitis who presented to the hospital with palpitations and tachycardia. He denies previous symptoms of palpitations, dyspnea, dyspnea on exertion, LE edema, chest pain, nausea vomiting. During this episode, he was slightly lightheaded but did not have syncope. He denied chest pain, arm pain / numbness / tingling, neck discomfort. He denies recent fever, chills. He does have chronic allergies with rhinorrhea. EKG showed afib with RVR without evidence of ischemia. CXR was unremarkable. He was sedated in the ER for cardioversion, failed 3x attempts with ER provider. He was given IV metoprolol with minimal effect, then started on diltiazem infusion and admitted to the hospitalist service. He quickly coverted to sinus rhythm af ter arrival to the hospital floor. He was monitored for a few hours after conversion without recurrence. He was started on 25 mg BID of oral metoprolol. Echocardiogram performed which was unremarkable. He was started on eliquis as well. Troponins were negative. Patient elected for discharge home after brief observation stay. Discharge Providers Provider Date of admission: 08/15/22 09:42 Discharge Date: 08/15/22 Primary care physician: Tami Rodríguez DO Discharge provider: Harsh Rodriguez DO Summary Hospital Course Discharge Diagnosis: 1. paroxysmal atrial fibrillation with RVR, new diagnosis 2. Prostate cancer 3. chronic allergic rhinitis. Hospital Course: See above history, in brief he failed cardioversion x3 in the ER. Started on diltiazem infusion in the emergency room with quick coversion to NSR. He was started on oral metoprolol succinate 25 mg BID, with normal blood pressures. He had no recurrence of afib after about 4 hours of monitoring. Echocardiogram was unremarkable with a normal EF and no wall motion abnormalities. He was started on oral apixban given CHADS2-VASC of 2 (age). Troponins were within normal limits and patient had no chest pain during episode of palpitations and after conversion along with reassuring EKG even in the setting of RVR. ?- Discussed risks and benefits of continued admission to monitor overnight for recurrence or discharge home given his well appearance, patient elected for discharge home. He was sent metoprolol and apixaban to his local pharmacy and ideally should follow up with his primary care provider in the next 1-2 weeks. Time Spent with Patient Time spent: Less than 30 minutes Exam Vital Signs (past 8 hours): - 08/15/22 11:22 08/15/22 12:20 08/15/22 14:24 Temperature 96.7 F L Pulse Rate 66 68 66 Respiratory Rate 16 Blood Pressure 100/86 100/66 114/68 Pulse Oximetry 98 Oxygen Flow Rate 0 08/15/22 10:30 08/15/22 11:00 08/15/22 11:30 Temperature Pulse Rate 64 63 62 Respiratory Rate 22 35 H 19 Blood Pressure Pulse Oximetry 98 99 98 Oxygen Flow Rate 08/15/22 12:00 08/15/22 12:30 08/15/22 13:00 Temperature Pulse Rate 64 73 62 Respiratory Rate 18 29 H 17 Blood Pressure Pulse Oximetry 98 98 97 Oxygen Flow Rate 08/15/22 13:30 08/15/22 14:00 08/15/22 14:30 Temperature Pulse Rate 63 66 67 Respiratory Rate 16 23 20 Blood Pressure Pulse Oximetry 97 98 99 Oxygen Flow Rate Oxygen Delivery Method Room Air Oxygen Flow Rate 0 Narrative Exam Narrative: General:? Patient is well developed and well nourished, in no distress at this time. HEENT:? Normocephalic, atraumatic, extraocular muscles intact, oral pharynx is clear and mucous membranes are moist. Neck: supple and symmetric, trachea is midline, no cervical adenopathy. Negative for JVD Chest:? Normal AP diameter and contour without kyphoscoliosis, no tachypnea, equal chest rise bilaterally. Lungs:? CTA b/l no wheezing rhonchi or rales. Cardio:?RRR no m/r/g. Abdomen: S NT ND. No CVA tenderness. Musculoskeletal:? Muscle strength and tone are equal within normal limits, no deformity. Extremities: No edema or joint effusions. No cyanosis or clubbing. Skin:? Pale,? Warm to touch,dry and intact without rashes, ulcerations or petechiae.? Neuro:? Alert and orientated x3,? sensation to touch intact in all extremities, no gross deficits noted of cranial nerves. Psych:? Patient has a well-kept appearance, appropriate affect, mental status attitude thought context and judgment are appropriate for age. Objective Labs 08/15/22 07:51 08/15/22 07:51 Labs: Laboratory Results - last 24 hr 08/15/22 08/15/22 08/15/22 07:51 07:51 07:51 WBC 6.0 RBC 5.03 Hgb 15.0 Hct 43.6 MCV 86.8 MCH 29.8 MCHC 34.3 RDW 14.1 Plt Count 202 Neut % (Auto) 54.7 Lymph % (Auto) 30.8 Maries % (Auto) 9.2 Eos % (Auto) 4.4 H Baso % (Auto) 0.9 Neut # (Auto) 3300 Lymph # (Auto) 1800 Maries # (Auto) 600 Eos # (Auto) 300 Baso # (Auto) 100 PT 11.8 INR 1.0 APTT 31 Sodium 135 L Potassium 4.1 Chloride 101 Carbon Dioxide 25 BUN 23 H Creatinine 0.81 Estimated GFR > 60 BUN/Creatinine Ratio 28.4 H Glucose 101 Calcium 8.4 Magnesium 2.0 Total Bilirubin 0.6 AST 34 ALT 32 Alkaline Phosphatase 92 Total Creatine Kinase 75 CK-MB (CK-2) TNP CK-MB (CK-2) Rel Index TNP Troponin I < 0.012 NT-Pro-B Natriuret Pep Total Protein 7.0 Albumin 4.4 Globulin 2.6 Albumin/Globulin Ratio 1.7 Lipase 45 Nasal Screen MRSA (PCR) SARS-CoV-2 (PCR) 08/15/22 08/15/22 08/15/22 07:51 08:15 10:20 WBC RBC Hgb Hct MCV MCH MCHC RDW Plt Count Neut % (Auto) Lymph % (Auto) Maries % (Auto) Eos % (Auto) Baso % (Auto) Neut # (Auto) Lymph # (Auto) Maries # (Auto) Eos # (Auto) Baso # (Auto) PT INR APTT Sodium Potassium Chloride Carbon Dioxide BUN Creatinine Estimated GFR BUN/Creatinine Ratio Glucose Calcium Magnesium Total Bilirubin AST ALT Alkaline Phosphatase Total Creatine Kinase CK-MB (CK-2) CK-MB (CK-2) Rel Index Troponin I NT-Pro-B Natriuret Pep 349 Total Protein Albumin Globulin Albumin/Globulin Ratio Lipase Nasal Screen MRSA (PCR) Not detected SARS-CoV-2 (PCR) Negative 08/15/22 15:10 WBC RBC Hgb Hct MCV MCH MCHC RDW Plt Count Neut % (Auto) Lymph % (Auto) Maries % (Auto) Eos % (Auto) Baso % (Auto) Neut # (Auto) Lymph # (Auto) Maries # (Auto) Eos # (Auto) Baso # (Auto) PT INR APTT Sodium Potassium Chloride Carbon Dioxide BUN Creatinine Estimated GFR BUN/Creatinine Ratio Glucose Calcium Magnesium Total Bilirubin AST ALT Alkaline Phosphatase Total Creatine Kinase CK-MB (CK-2) CK-MB (CK-2) Rel Index Troponin I 0.032 NT-Pro-B Natriuret Pep Total Protein Albumin Globulin Albumin/Globulin Ratio Lipase Nasal Screen MRSA (PCR) SARS-CoV-2 (PCR) [facility] Medical History Arthritis BPH (benign prostatic hyperplasia) Elevated blood pressure reading without diagnosis of hypertension Elevated PSA Incomplete bladder emptying Medicare annual wellness visit, subsequent Nodular prostate with urinary obstruction Prostate cancer Right hydrocele Right inguinal hernia Sinus drainage Subclinical hypothyroidism Thumb pain Surgical History Anesthesia History of hernia repair (~02/2019) Hx of bilateral cataract extraction (~2007) Hx of eye surgery (~1953) Status post Mohs surgery (~2016) Family History Brother CAD (coronary artery disease) Diabetes mellitus Hyperlipidemia Hypertension Sister Diabetes mellitus Hyperlipidemia Hypertension Social History marital status: number of children: 1 household members: spouse Smoking Status: Current some day smoker alcohol intake: current caffeine: Yes Type(s) of exercise: bicycling frequency: 3-4 times per week duration: > 90 minutes/day Discharge Plan Discharge Plan Patient Disposition: Home Provider Discharge Comment: You were admitted to the hospital with an episode of atrial fibrillation. This improved quickly and your heart improved to a normal rate. You were started on medications for stroke prevention and a medication that is meant to slow your heart rate to try and prevent future episodes of afib. Please follow up with your PCP as soon as possible to assess response to medications with possible changes. If apixaban is too expensive, please call your prescription drug plan to see about best / most cost effective services, if changes are needed you can reach out to hospitalist on duty to see if a new prescription can be sent. Discharge orders & Medications Prescriptions: New metoprolol succinate 25 mg tablet extended release 24 hr 25 mg PO BID 30 Days Qty: 60 0RF apixaban 5 mg tablet 5 mg PO BID 30 Days Qty: 60 0RF Continued fluticasone propionate 50 mcg/actuation spray,suspension 2 spray intranasal DAILY Qty: 16 11RF Rx Instructions: administer into each nostril Zyrtec 10 mg capsule 10 mg PO DAILY PRN (Reason: Allergy Symptoms) tamsulosin 0.4 mg capsule 0.8 mg PO BEDTIME Qty: 180 3RF famotidine [Zantac-360 (famotidine)] 20 mg tablet 20 mg PO DAILY vitamin D3-vitamin K2 125-90 mcg capsule 125 cap PO DAILY zinc sulfate 50 mg zinc (220 mg) tablet 50 mg PO DAILY Lactobacillus acidophilus [Probiotic Acidophilus] PO DAILY ascorbate calcium (vitamin C) 500 mg tablet 500 mg PO DAILY Follow up/Referrals: Tami Rodríguez DO [Primary Care Provider] - 1 Week Diet/Activity/Treatments Diet: Diet as Tolerated Activity: As tolerated Visit Report/Discharge Packet Instructions: Atrial Fibrillation, DI for Atrial Fibrillation Stand Alone Forms: Patient Portal/API, Stroke Signs & Symptoms Discharge Data Primary Care Provider: Tami Rodríguez Discharges patient from system. Discharge Date/Time: 08/15/22 16:23
== END 2022-08-15 16:23 | disposition home or self-care (01) ==
LOC: ED 09:33 → AC 09:51 → ICU 10:23 → AC 08-21 08:10
PROVIDERS: Admitting Provider Internal Medicine; Emergency Provider Emergency Medicine; PCP Family Medicine; Referring Provider Emergency Medicine; Visit Provider Internal Medicine
DX: I48.0 Paroxysmal atrial fibrillation (principal); Z20.822 Contact with and (suspected) exposure to COVID-19; C61 Malignant neoplasm of prostate; J30.9 Allergic rhinitis, unspecified
CPT/HCPCS: 36415; 71045; 80053; 82550; 83690; 83735; 83880; 84484; 85025; 85610; 85730; 87635; 87797; 92960; 93005; 93306; 96361; 96365; 96375; 99152; 99285; 99291; C9803; G0378; J2704; J3010

== ENCOUNTER → 2022-08-17 13:55 | Outpatient (CLI) | payer MEDICARE, OTHER, SELFPAY ==
[2022-08-15 11:30] VITALS: BMI 24.4
--- NOTE | 2022-08-17 13:56 | DI.US.S_ITS ---
PROCEDURE: US SCROTUM INDICATIONS: MASS RIGHT INGUINAL CANAL TECHNIQUE: Real-time scanning was performed of the scrotum and testicles, with image documentation. Color and pulse Doppler interrogation was performed of both testicles. COMPARISON: None. FINDINGS: Right: Testicle is normal in size at 5.4 x 3.6 x 2.9 cm, and homogenous in echotexture. Exophytic right testicular appendage measuring 0.5 x 0.4 x 0.3 cm. No internal vascularity. Epididymis is normal in overall size and morphology. No varicoceles. Large hydrocele. Overlying scrotal skin is normal in thickness. Left: Testicle is normal in size at 4.2 x 2.6 x 2.2 cm, and homogeneous in echotexture. Epididymis is normal in overall size and morphology. Left epididymis echogenic foci. No varicoceles. Small hydrocele. Overlying scrotal skin is normal in thickness. Doppler: Color and pulse Doppler demonstrate normal and symmetric arterial flow in both testicles. Anechoic collection at the right inguinal region measuring 4.6 x 3.6 x 3.2 cm. IMPRESSION: 1. Anechoic fluid at the right inguinal canal measuring 4.6 cm. 2. Large right hydrocele. Trace left hydrocele. 3. Right testicular appendage. No testicular mass. Dictated by: David Ayala M.D. on 08/17/2022 at 15:33 Approved by: David Ayala M.D. on 08/17/2022 at 15:38
--- NOTE | 2022-08-17 13:56 | DI.RAD.S_ITS ---
Bone Density Report Name: DERICK BARROW Age: 76 Sex: Male Ethnicity: White Date of : 1945 Indication: screening for osteoporosis; Referring Provider: CRUZ MACK Study: Bone densitometry was performed. Exam Date: August 17, 2022 Accession number: [id number] Bone Density: Region BMD T-score Z-score Classification AP Spine(L1, L3) 1.075 0.6 1.2 Normal Femoral Neck (Left) 0.904 0.5 1.2 Normal Total Hip (Left) 0.931 -0.1 0.2 Normal Femoral Neck (Right) 0.926 0.7 1.4 Normal Total Hip (Right) 0.942 0.0 0.3 Normal Total Hip Mean 0.937 -0.1 0.3 Normal World Health Organization criteria for BMD impression classify patients as: Normal (T-score at or above -1.0), Osteopenia (T-score between -1.0 and -2.5), or Osteoporosis (T-score at or below -2.5). 10-year Fracture Risk: FRAX not reported because: All T-scores for Spine Total, Hip Total, Femoral Neck at or above -1.0 Impression: The patient has normal bone mass. Discussion: BONE DENSITY IS ABOVE THE MINIMUM DESIRABLE LEVEL AT ALL SKELETAL SITES TESTED. This patient's bone mineral density is above the minimum desirable level (T-score -1.0 or better) at all sites measured. The patient should follow a healthful lifestyle (good nutrition with adequate calcium and vitamin D, and appropriate weight-bearing exercise). Follow-Up: Consider repeating this study in 5 years or sooner if there is some new clinical indication. Reported by: RONEY STATON M.D. on 08/17/2022 2:58:00 PM.
== END ==
PROVIDERS: PCP Family Medicine; Referring Provider Specialist; Visit Provider Specialist
DX: N43.3 Hydrocele, unspecified (principal); R19.09 Other intra-abdominal and pelvic swelling, mass and lump; Z13.820 Encounter for screening for osteoporosis; N40.3 Nodular prostate with lower urinary tract symptoms; N13.8 Other obstructive and reflux uropathy; R97.20 Elevated prostate specific antigen [PSA]
CPT/HCPCS: 76870; 77080

== ENCOUNTER → 2022-08-18 10:49 | Outpatient (CLI) | payer MEDICARE, OTHER, SELFPAY ==
[2022-08-15 11:30] VITALS: BMI 24.4
--- NOTE | 2022-08-18 10:51 | DI.CT.S_ITS ---
PROCEDURE: CT CHEST ABD PEL W CON INDICATIONS: Prostate cancer. Elevated PSA TECHNIQUE: After the administration of oral and intravenous contrast, axial sections acquired from the supraclavicular neck to the pubic symphysis. Coronal and sagittal reformats were performed. For radiation dose reduction, the following was used: automated exposure control, adjustment of mA and/or kV according to patient size. COMPARISON: None. FINDINGS: Image quality: Excellent. CHEST: Lower Neck: No enlarged lymph nodes. Thyroid: Enlarged, heterogeneous thyroid. Axillae: No enlarged lymph nodes. Chest Wall: Unremarkable. Lungs and Airways: 9 millimeter nodularity with angulated margins in the right upper lobe (series 5, image 167). 9 millimeter nodule in the central right lower lobe (series 5, image 252). Juxtapleural nodularity along the left major fissure, presumably an intrapulmonary lymph node. Scarring of the posterior left lower lobe and lingula. Pleura: No pneumothorax or pleural effusions. Heart: Heart size is normal. No pericardial effusion. Thoracic Vessels: The aorta and pulmonary arteries demonstrate normal size. Mediastinum and Camila: No enlarged lymph nodes. Esophagus: No wall thickening. Small hiatal hernia. ABDOMEN: Liver: Fluid attenuating liver cysts. Gallbladder: Contracted. Biliary ducts: Unremarkable. Pancreas: Unremarkable. Spleen: Unremarkable. Adrenal Glands: Unremarkable. Kidneys and Ureters: Unremarkable. Stomach and Bowel: Stomach, small bowel loops, and colon are unremarkable. Colonic diverticulosis without evidence of diverticulitis. Peritoneum: No abnormal intraperitoneal fluid. No free air. Ventral Wall: No hernia. Abdominal Nodes: No retroperitoneal or mesenteric adenopathy by size criteria. Vessels: Aorta and inferior vena cava are normal in size. PELVIS: Pelvic Organs: Prostate is enlarged. There is capsular irregularity of the right mid gland (series 2, image 122), concerning for extracapsular invasion. Bladder: Unremarkable. Pelvic Nodes: Prominent right common iliac chain node measuring 6 millimeter short axis (series 2, image 98) Miscellaneous: No inguinal hernias are seen. Bones: Ankylosis of the sacroiliac joints. No evidence of osseous metastatic disease. IMPRESSION: 1. Prostate is enlarged. There is capsular irregularity of the right mid gland (series 2, image 122), concerning for extracapsular invasion. 2. A couple of solid nodules measuring 9 millimeters with angulated margins. Differential includes metastatic disease or primary lung malignancy. Consider 3 month follow-up with low-dose chest CT for comparison. 3. Prominent right common iliac chain node measuring 6 millimeters. Attention on follow-up. 4. Enlarged, heterogeneous thyroid, most consistent with thyroiditis. Dictated by: Nando Gutierrez M.D. on 08/18/2022 at 13:40 Approved by: Nando Gutierrez M.D. on 08/18/2022 at 13:53
--- NOTE | 2022-08-18 10:51 | DI.NM.S_ITS ---
PROCEDURE: NM BONE SCAN WHOLE BODY RADIOPHARMACEUTICAL: 20.7 mCi Tc-99m MDP IV. INDICATIONS: Mass right inguinal canal TECHNIQUE: Delayed whole-body scintigrams were obtained approximately 3-4 hours after intravenous injection of radiotracer. Anterior and posterior views were acquired from vertex to feet. COMPARISON: [facility], CT, CT CHEST ABD PEL W CON, 08/18/2022, 11:38. FINDINGS: There are foci of mildly increased activity in right maxilla and left mandible, most likely related to dental disease. No lesions are identified in calvarium, sternum, clavicles, scapulae, ribs, bony pelvis, and visualized shafts of the long bones. There are foci of increased uptake in cervical, thoracic and lumbar spine most likely secondary to degenerative disc and facet disease; early metastasis to spine could be obscured by degenerative changes. There are foci of increased periarticular activity most pronounced at the sternoclavicular joints bilaterally and knees bilaterally, compatible with degenerative/arthritic changes. Bladder is distended, partially obscure pelvis. IMPRESSION: 1. No definitive osseous metastatic disease. 2. Degenerative/arthritic changes as described. 3. Foci of mildly increased activity in the area of the right maxilla and left mandible, most likely secondary to dental disease. Recommend clinical correlation. Dictated by: Alex Walter M.D. on 08/18/2022 at 15:08 Approved by: Alex Walter M.D. on 08/18/2022 at 15:11
== END ==
PROVIDERS: PCP Family Medicine; Referring Provider Specialist; Visit Provider Specialist
DX: C61 Malignant neoplasm of prostate (principal); R97.20 Elevated prostate specific antigen [PSA]; R91.8 Other nonspecific abnormal finding of lung field; R59.0 Localized enlarged lymph nodes; E04.9 Nontoxic goiter, unspecified; K57.90 Diverticulosis of intestine, part unspecified, without perforation or abscess without bleeding; K44.9 Diaphragmatic hernia without obstruction or gangrene; K76.89 Other specified diseases of liver
CPT/HCPCS: 71260; 74177; 78306; A9503; Q9967

== ENCOUNTER → 2022-09-06 12:00 | Outpatient (CLI) | payer MEDICARE, OTHER, SELFPAY ==
[2022-08-15 11:30] VITALS: BMI 24.4
[2022-09-06 13:32] LABS: BUN Creatinine Ratio 23.7 (6-22); Blood Urea Nitrogen 23 mg/dL (9-20); Calcium 8.8 mg/dL (8.4-10.2); Carbon Dioxide 30 mmol/L (22-32); Chloride 101 mmol/L (98-107); Estimated Glomerular Filt Rate > 60 mL/min (>60); Glucose 88 mg/dL (80-110); HEMOLYSIS < 15 (0-50); Potassium 4.7 mmol/L (3.4-5.1); Sodium 138 mmol/L (137-145)
[2022-09-06 14:02] LABS: Prostate Specific Antigen 57.6 ng/mL (0.10-4.00)
== END ==
PROVIDERS: PCP Family Medicine; Referring Provider Specialist; Visit Provider Specialist
DX: R97.20 Elevated prostate specific antigen [PSA] (principal); Z01.812 Encounter for preprocedural laboratory examination
CPT/HCPCS: 36415; 80048; 84153

== ENCOUNTER → 2022-10-03 13:23 | Outpatient (CLI) | payer MEDICARE, OTHER, SELFPAY ==
[2022-08-15 11:30] VITALS: BMI 24.4
[2022-10-03 16:47] LABS: Prostate Specific Antigen 38.3 ng/mL (0.10-4.00)
== END ==
PROVIDERS: PCP Family Medicine; Referring Provider Specialist; Visit Provider Specialist
DX: R97.20 Elevated prostate specific antigen [PSA] (principal)
CPT/HCPCS: 36415; 84153

== ENCOUNTER → 2022-11-07 15:28 | Outpatient (CLI) | payer MEDICARE, OTHER, SELFPAY ==
[2022-08-15 11:30] VITALS: BMI 24.4
[2022-11-07 18:17] LABS: Prostate Specific Antigen 29.6 ng/mL (0.10-4.00)
== END ==
PROVIDERS: PCP Family Medicine; Referring Provider Specialist; Visit Provider Specialist
DX: R97.20 Elevated prostate specific antigen [PSA] (principal)
CPT/HCPCS: 36415; 84153

== ENCOUNTER 2022-11-21 13:12 | Day surgery (SDC) | payer MEDICARE, OTHER, SELFPAY ==
[2022-08-15 11:30] VITALS: BMI 24.4
--- NOTE | 2022-11-21 | PATH_ITS ---
[facility] Accession Number: [id number] No. of containers..01 Tissue . 01 Material submitted: . colon - TRANSVERSE POLYP . 01 Diagnosis: Transverse Colon, Polyp: Tubular adenoma. JN 12/01/2022 1333 Local . 01 Electronically signed: . Nikkie Bunn MD, Pathologist NPI- [id number] . 01 Gross description: . TRANSVERSE POLYP: Received in formalin is multiple fragment(s) of mcclendon, soft tissue measuring 0.5 x 0.3 x 02 cm in aggregate submitted entirely in 1 cassette(s) /AAY 11/23/2022 1310 Local . 01 Pathologist provided ICD-10: D12.6 . 01 CPT . 646531 Specimen Comment: A courtesy copy of this report has been sent to [phone] Performed at: 01 [facility] [address] [place] [address], [place], [place] [id number] MD Abdoul Sarkar MD Phone: [phone]
[2022-11-21 13:42] VITALS: BP 144/76; PULSE 51; RESP 16; TEMP 35.7; O2SAT 99; BMI 53.7
[2022-11-21] MEDS: LACTATED RINGERS 1,000 ML 200 ML IV (13:55)
--- NOTE | 2022-11-21 14:53 | PM.HP.1 ---
History of Present Illness History of Present Illness Date Patient Seen: 11/21/22 Time Patient Seen: 14:53 Chief [place] [facility] [place] The patient presents for colorectal screening. They have never had any previous examination for such. No personal or family history of colon cancer. On further history denies any recent gastrointestinal symptoms. No nausea, vomiting, abdominal pain, loss of appetite, unexplained weight loss, change in bowel habits, or blood per rectum. 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 Right hydrocele Right inguinal hernia Sinus drainage Subclinical hypothyroidism Thumb pain Surgical History Anesthesia History of hernia repair (~02/2019) Hx of bilateral cataract extraction (~2007) Hx of eye surgery (~1953) Status post Mohs surgery (~2016) Family History Brother CAD (coronary artery disease) Diabetes mellitus Hyperlipidemia Hypertension Sister Diabetes mellitus Hyperlipidemia Hypertension Social History marital status: number of children: 1 household members: spouse Smoking Status: Never smoker alcohol intake: current substance use type: marijuana (cannibus occ) caffeine: Yes Type(s) of exercise: bicycling frequency: 3-4 times per week duration: > 90 minutes/day Meds Home Medications and Allergies Home Medications Medication Instructions Recorded Confirmed Type cetirizine 10 mg capsule (Zyrtec) 10 mg PO DAILY PRN Allergy Symptoms 05/04/22 11/09/22 History fluticasone propionate 50 2 spray intranasal DAILY #16 grams 05/10/22 11/09/22 Rx mcg/actuation nasal spray,suspension Lactobacillus acidophilus 1 tab PO DAILY 07/19/22 11/09/22 History [Probiotic Acidophilus] ascorbate calcium (vitamin C) 500 500 mg PO DAILY 07/19/22 11/09/22 History mg tablet famotidine 20 mg tablet 20 mg PO DAILY 07/19/22 11/09/22 History (Zantac-360 (famotidine)) vitamin D3 125 mcg (5,000 125 cap PO DAILY 07/19/22 11/09/22 History unit)-vitamin K2 90 mcg capsule zinc sulfate 50 mg zinc (220 mg) 50 mg PO DAILY 07/19/22 11/09/22 History tablet tamsulosin 0.4 mg capsule 0.8 mg PO BEDTIME #180 caps 08/01/22 11/09/22 Rx apixaban 5 mg tablet 5 mg PO BID 30 days #180 tabs 09/13/22 11/21/22 Rx calcium 500 mg tablet 500 mg DAILY 10/19/22 11/09/22 History sodium,potassium,mag sulfates 17.5 See Rx Instructions PO .COMPLEX 10/23/22 11/09/22 Rx gram-3.13 gram-1.6 gram oral soln #354 mL (Suprep Bowel Prep Kit) abiraterone, submicronized 125 mg 500 mg PO DAILY 10/26/22 11/09/22 History tablet (Yonsa) methylprednisolone 4 mg tablet 4 mg PO BID 10/26/22 11/09/22 History metoprolol succinate 25 mg 25 mg PO DAILY 11/09/22 11/09/22 History tablet,extended release 24 hr Allergies Allergy/AdvReac Type Severity Reaction Status Date / Time No Known Drug Allergies Allergy Verified 11/21/22 13:40 Exam Vital Signs (past 8 hours): - 11/21/22 13:42 Temperature 96.3 F L Pulse Rate 51 L Respiratory Rate 16 Blood Pressure 144/76 H Pulse Oximetry 99 Oxygen Delivery Method Room Air Oxygen Delivery Method Room Air Narrative Exam Narrative: General adult man alert oriented no acute distress Chest nonlabored respiration Abdomen soft nontender nondistended Assessment & Plan Assessment & Plan narrative: The patient requires colorectal screening and colonoscopy is recommended. Technical details were discussed. Risks, benefits, alternatives explained. Risks including but not limited to myocardial infarction, aspiration, bleeding, pain, missed lesion, incomplete examination, need for further radiographic studies, colonic perforation, and need for major abdominal surgery were discussed. All questions were answered to their satisfaction, and they are in agreement with this plan.
[2022-11-21 15:30] VITALS: BP 106/64; PULSE 67; RESP 14; O2SAT 99
[2022-11-21 15:35] VITALS: BP 93/53; PULSE 64; RESP 18; TEMP 36.3; O2SAT 98
--- NOTE | 2022-11-21 15:35 | PM.OP.COLON ---
Operative Date/Time/Diagnoses Date of procedure: 11/21/22 Time of procedure: 15:35 Pre-op diagnosis: Colorectal screening Post-op diagnosis: other (Colonic polyp x1) Procedure & Clinicians Study performed: Colonoscopy and polypectomy Same procedure as scheduled: Yes Indications: Colorectal screening Surgeon: Rde Carlson Procedure Notes Procedure in detail: The history and physical was performed/updated and the patient is ASA class is 3. The procedure was discussed in detail with the patient. Potential risks complications including infection, bleeding, missed diagnosis, perforation, need for surgery, and were explained. Their questions were answered and informed consent was obtained. Patient was brought to the procedure room and placed standard monitoring equipment. The patient's vital signs were monitored continuously throughout the entire procedure. Prior to starting time-out was performed. The patient was placed in the left lateral recumbent position. Procedural sedation was administered by anesthesia. Examination began with a thorough inspection of the perianal area there was no evidence of fissures, fistulae, external hemorrhoids or cutaneous malignancy. The colonoscopy scope was then placed into the anal canal and was advanced to the cecum, which was identified by the ileocecal valve, the appendiceal orifice and the confluence of the taenia. The scope was then slowly withdrawn examining colon thoroughly in all directions, irrigating it of any residual stool. Sigmoid-extensive diverticulosis Transverse colon-5 mm polyp removed with biopsy forceps The patient tolerated the procedure well. They will be discharged once criteria are met. The prep was of fair quality. The withdrawl time was 8 minutes. Specimen(s): other (Transverse colon polyp) Impression: Colonic polyp x1 Post-procedure Plan for aftercare: Follow-up is dependent on pathology findings Disposition: same day surgery
[2022-11-21 15:40] VITALS: BP 103/61; PULSE 67; RESP 22; TEMP 36.3; O2SAT 98
[2022-11-21 15:46] VITALS: BP 114/66; PULSE 67; RESP 14; TEMP 36.3; O2SAT 98
== END 2022-11-21 16:00 | disposition home or self-care (01) ==
PROVIDERS: PCP Family Medicine; Referring Provider Surgery; Visit Provider Surgery
PROC: 0DJD8ZZ Inspection of Lower Intestinal Tract, Via Natural or Artificial Opening Endoscopic (ICD-10-PCS; CPT 45378; principal; 2022-11-21 14:30)
DX: Z12.11 Encounter for screening for malignant neoplasm of colon (principal); K57.30 Diverticulosis of large intestine without perforation or abscess without bleeding; D12.3 Benign neoplasm of transverse colon
CPT/HCPCS: 45380; J2704; J3010

== ENCOUNTER → 2022-11-22 13:08 | Outpatient (CLI) | payer MEDICARE, OTHER, SELFPAY ==
[2022-08-15 11:30] VITALS: BMI 24.4
[2022-11-22 14:38] LABS: Free T3, Triiodothyronine Free 3.46 pg/mL (2.77-5.27); Free T4, Direct Thyroxine 1.83 ng/dL (0.78-2.19)
[2022-11-22 14:52] LABS: Thyroid Stimulating Hormone < 0.015 uIU/mL (0.47-4.68)
== END ==
PROVIDERS: PCP Family Medicine; Referring Provider Internal Medicine Cardiovascular Disease; Visit Provider Internal Medicine Cardiovascular Disease
DX: R60.0 Localized edema (principal)
CPT/HCPCS: 36415; 84439; 84443; 84481

== ENCOUNTER → 2022-12-06 13:50 | Outpatient (CLI) | payer MEDICARE, OTHER, SELFPAY ==
[2022-08-15 11:30] VITALS: BMI 24.4
[2022-12-06 14:54] LABS: Alanine Aminotransferase 28 IU/L (<50); Albumin 4.3 g/dL (3.5-5.0); Albumin Globulin Ratio 1.7 (1.0-2.8); Alkaline Phosphatase 55 U/L (38-126); Aspartate Aminotransferase 29 IU/L (17-59); BUN Creatinine Ratio 30.5 (6-22); Blood Urea Nitrogen 32 mg/dL (9-20); Calcium 9.5 mg/dL (8.4-10.2); Carbon Dioxide 25 mmol/L (22-32); Chloride 102 mmol/L (98-107); Estimated Glomerular Filt Rate > 60 mL/min (>60); Globulin 2.6 g/dL (1.7-4.1); Glucose 84 mg/dL (80-110); HEMOLYSIS < 15 (0-50); Potassium 4.5 mmol/L (3.4-5.1); Sodium 137 mmol/L (137-145); Total Protein 6.9 g/dL (6.3-8.2)
[2022-12-06 15:19] LABS: Prostate Specific Antigen 4.23 ng/mL (0.10-4.00)
== END ==
PROVIDERS: PCP Family Medicine; Referring Provider Specialist; Visit Provider Specialist
DX: C61 Malignant neoplasm of prostate (principal); R97.20 Elevated prostate specific antigen [PSA]
CPT/HCPCS: 36415; 80053; 84153

== ENCOUNTER → 2023-01-09 10:58 | Outpatient (CLI) | payer MEDICARE, OTHER, SELFPAY ==
[2022-08-15 11:30] VITALS: BMI 24.4
[2023-01-09 11:32] LABS: Alanine Aminotransferase 113 IU/L (<50); Albumin 4.2 g/dL (3.5-5.0); Albumin Globulin Ratio 1.6 (1.0-2.8); Alkaline Phosphatase 49 U/L (38-126); Aspartate Aminotransferase 61 IU/L (17-59); BUN Creatinine Ratio 25.7 (6-22); Bilirubin Total 1.2 mg/dL (0.2-1.3); Blood Urea Nitrogen 26 mg/dL (9-20); Calcium 9.3 mg/dL (8.4-10.2); Carbon Dioxide 30 mmol/L (22-32); Chloride 101 mmol/L (98-107); Estimated Glomerular Filt Rate > 60 mL/min (>60); Globulin 2.6 g/dL (1.7-4.1); Glucose 79 mg/dL (80-110); HEMOLYSIS < 15 (0-50); Sodium 138 mmol/L (137-145); Total Protein 6.8 g/dL (6.3-8.2)
[2023-01-09 12:02] LABS: Prostate Specific Antigen 1.83 ng/mL (0.10-4.00)
== END ==
PROVIDERS: PCP Family Medicine; Referring Provider Specialist; Visit Provider Specialist
DX: N40.1 Benign prostatic hyperplasia with lower urinary tract symptoms (principal); R35.1 Nocturia; R97.20 Elevated prostate specific antigen [PSA]
CPT/HCPCS: 36415; 80053; 84153

== ENCOUNTER 2023-01-19 10:30 | Emergency (ER) | payer MEDICARE, OTHER, SELFPAY ==
[2022-08-15 11:30] VITALS: BMI 24.4
[2023-01-19 10:34] VITALS: BP 120/70; PULSE 89; RESP 20; TEMP 36.5; O2SAT 99; BMI 24.6
--- NOTE | 2023-01-19 10:39 | DI.RAD.S_ITS ---
PROCEDURE: XR CHEST 1V INDICATIONS: chest pain TECHNIQUE: One view of the chest was acquired. COMPARISON: [facility], [place], CT PET SKULL BASE TO MID THIGH, 10/10/2022, 15:00. [facility], [place], XR CHEST 1V, 08/15/2022, 9:19. FINDINGS: Surgical changes and devices: None. Lungs and pleura: Lungs are clear. No pleural effusions or pneumothorax. Mediastinum: Mediastinal contours appear normal. Heart size is normal. Bones and chest wall: No suspicious bony lesions. Overlying soft tissues appear unremarkable. IMPRESSION: Portable chest within normal limits for age. Dictated by: Chantell Yang M.D. on 01/19/2023 at 10:59 Approved by: Chantell Yang M.D. on 01/19/2023 at 10:59
[2023-01-19 11:03] LABS: Add Manual Diff / Slide Review NO; Basophils Absolute Auto 0 /uL (0-100); Basophils Percent Auto 0.3 % (0-2); Eosinophils Absolute Auto 200 /uL (0-450); Eosinophils Percent Auto 2.2 % (2-4); Hematocrit 42.8 % (41-53); Hemoglobin 14.9 g/dL (13.5-17.5); Lymphocytes Absolute Auto 1500 /uL (1100-4500); Lymphocytes Percent Auto 21.7 % (25-40); Mean Corpuscular HGB Conc 34.9 % (30-36); Mean Corpuscular Hemoglobin 31.3 PG (26-34); Mean Corpuscular Volume 89.7 fL (80-100); Monocytes Absolute Auto 700 /uL (0-900); Monocytes Percent Auto 10.5 % (3-14); Neutrophils Absolute Auto 4500 /uL (1500-7000); Neutrophils Percent Auto 65.3 % (50-75); Platelet Count 163 X10^3/uL (150-400); Red Blood Cell Count 4.77 X10^6/uL (4.5-5.9); Red Cell Distribution Width 15.2 % (11.6-14.8); White Blood Cell Count 6.9 X10^3/uL (4.5-11.0)
[2023-01-19 11:05] LABS: INR 1.3 (0.9-1.3); Prothrombin Time 14.4 SECONDS (10.1-12.7)
[2023-01-19 11:07] LABS: PTT Partial Thromboplastin Tim 30 SECONDS (26-36)
[2023-01-19 11:09] LABS: Alanine Aminotransferase 124 IU/L (<50); Albumin Globulin Ratio 1.4 (1.0-2.8); Alkaline Phosphatase 54 U/L (38-126); Aspartate Aminotransferase 60 IU/L (17-59); BUN Creatinine Ratio 29.6 (6-22); Bilirubin Total 1.6 mg/dL (0.2-1.3); Blood Urea Nitrogen 29 mg/dL (9-20); Calcium 8.6 mg/dL (8.4-10.2); Carbon Dioxide 28 mmol/L (22-32); Chloride 95 mmol/L (98-107); Creatine Kinase 48 U/L (55-170); Estimated Glomerular Filt Rate > 60 mL/min (>60); Globulin 2.8 g/dL (1.7-4.1); Glucose 104 mg/dL (80-110); HEMOLYSIS 18 (0-50); Lipase 40 U/L (23-300); Magnesium 2.1 mg/dL (1.6-2.3); Sodium 130 mmol/L (137-145); Total Protein 6.8 g/dL (6.3-8.2)
[2023-01-19 11:20] LABS: Troponin I 0.022 ng/mL (0.01-0.034)
[2023-01-19 13:18] VITALS: PULSE 74; RESP 22; O2SAT 98
[2023-01-19 13:30] VITALS: PULSE 74; RESP 20; O2SAT 98
[2023-01-19 13:31] VITALS: BP 149/71; PULSE 74; RESP 23; O2SAT 99
--- NOTE | 2023-01-19 13:36 | ED.ARRPALP ---
HPI - Arrhythmia/Palpitations General Chief Complaint: Arrhythmia/Palpitations Stated Complaint: afib Time Seen by Provider: 01/19/23 13:08 Source: patient Mode of arrival: Ambulatory History of Present Illness HPI narrative: 77-year-old male with history of prostate cancer, AFib on Eliquis presents for episode of atrial fibrillation earlier this morning. Patient states that earlier this morning he felt his heart go into AFib, his apple watch noted heart rates as high as 150 beats per minute. Patient states his only medication change is 1 of his chemo pills has been taken off of his medication list due to elevated liver enzymes. Patient has upcoming cardiology appointment in 10 days. Currently asymptomatic, in sinus rhythm. Related Data Home Medications Medication Instructions Recorded Confirmed cetirizine 10 mg capsule (Zyrtec) 10 mg PO DAILY PRN Allergy Symptoms 05/04/22 01/19/23 Lactobacillus acidophilus 1 tab PO DAILY 07/19/22 01/19/23 [Probiotic Acidophilus] ascorbate calcium (vitamin C) 500 500 mg PO DAILY 07/19/22 01/19/23 mg tablet famotidine 20 mg tablet 20 mg PO DAILY 07/19/22 01/19/23 (Zantac-360 (famotidine)) vitamin D3 125 mcg (5,000 125 cap PO DAILY 07/19/22 01/19/23 unit)-vitamin K2 90 mcg capsule zinc sulfate 50 mg zinc (220 mg) 50 mg PO DAILY 07/19/22 01/19/23 tablet calcium 500 mg tablet 500 mg DAILY 10/19/22 01/19/23 abiraterone, submicronized 125 mg 500 mg PO DAILY 10/26/22 12/13/22 tablet (Yonsa) methylprednisolone 4 mg tablet 4 mg PO BID 10/26/22 12/13/22 metoprolol succinate 25 mg 25 mg PO DAILY 11/09/22 01/19/23 tablet,extended release 24 hr Previous Rx's Medication Instructions Recorded fluticasone propionate 50 2 spray intranasal DAILY #16 grams 05/10/22 mcg/actuation nasal spray,suspension tamsulosin 0.4 mg capsule 0.8 mg (2 x 0.4 mg) PO BEDTIME 08/01/22 #180 caps apixaban 5 mg tablet 5 mg PO BID 30 days #180 tabs 09/13/22 Allergies Allergy/AdvReac Type Severity Reaction Status Date / Time No Known Drug Allergies Allergy Verified 01/19/23 10:35 Review of Systems Review of Systems Narrative: CONSTITUTIONAL- Denies: fever, chills, fatigue HEENT- Denies: sore throat, nosebleed, vision changes RESPIRATORY- Denies: shortness of breath, cough, wheezing CARDIAC-reports: Palpitations Denies: chest pain, edema, orthopnea GI- Denies: abdominal pain, nausea, vomiting, constipation, diarrhea - Denies: frequency, dysuria, hematuria, flank pain MSK- Denies: extremity pain, extremity swelling, joint pain, joint swelling SKIN- Denies: rash, itching, burn, swelling NEUROLOGICAL- Denies: headache, numbness, weakness, dizziness PSYCHIATRIC- Denies: anxiety, depression, suicidal ideation, homicidal ideation Patient History Medical History Arthritis BPH (benign prostatic hyperplasia) Elevated blood pressure reading without diagnosis of hypertension Elevated PSA Incomplete bladder emptying Medicare annual wellness visit, subsequent Nodular prostate with urinary obstruction Prostate cancer 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 Right hydrocele Right inguinal hernia Sinus drainage Subclinical hypothyroidism Thumb pain Surgical History Anesthesia History of hernia repair (~02/2019) Hx of bilateral cataract extraction (~2007) Hx of eye surgery (~1953) Status post Mohs surgery (~2016) Family History Brother CAD (coronary artery disease) Diabetes mellitus Hyperlipidemia Hypertension Sister Diabetes mellitus Hyperlipidemia Hypertension Social History marital status: number of children: 1 household members: spouse Smoking Status: Never smoker alcohol intake: current substance use type: marijuana (cannibus occ) caffeine: Yes Type(s) of exercise: bicycling frequency: 3-4 times per week duration: > 90 minutes/day Smoking Status: Never smoker alcohol intake frequency: holidays/special occasions only Substance Use Type: marijuana Exam Initial Vital Signs Initial Vital Signs: Vital Signs Temperature 97.7 F 01/19/23 10:34 Pulse Rate 89 01/19/23 10:34 Respiratory Rate 20 01/19/23 10:34 Blood Pressure 120/70 01/19/23 10:34 Pulse Oximetry 99 01/19/23 10:34 Oxygen Delivery Method Room Air 01/19/23 10:34 Const: Awake, alert, no acute distress, nontoxic appearing Eyes: PERRL, EOMI, conjunctiva normal ENT: Atraumatic, dentition normal, mucous membranes moist Cardiac: regular rate, regular rhythm RESP: unlabored, clear bilaterally, no wheezing GI: Atraumatic, soft, nontender, nondistended, no rebound, no guarding MSK: Atraumatic, full range of motion, pulses equal Skin: Warm, Dry, intact, no rashes Neuro: AO x3, CN II-XII grossly intact, moves all extremities Psych: affect normal, mood normal, not suicidal, not homicidal Course Course Course Narrative: Patient presenting for AFib with elevated heart rate earlier this morning. While in the emergency department patient has been normal sinus rhythm, no rapid rate. Laboratory work is reviewed, unremarkable. Patient takes 25 mg of metoprolol daily, he was counseled that if he feels his heart rate increased then he should take 1 extra dose of his metoprolol. He states that he has plenty of medications at home and does not need a refill. In addition he already has scheduled cardiology follow up within the next several days. He was counseled that if his heart rate does not decrease with the extra metoprolol that he should come back to the ER for evaluation. Orders Ordered: ED Orders 01/19/23 10:39 XR chest 1V Stat EKG-12 Lead Stat 01/19/23 10:45 Complete Blood Count AUTO DIFF Stat Comprehensive Metabolic Panel Stat Lipase Stat Magnesium Stat PTT Partial Thromboplastin Lai Stat Prothrombin Time INR Stat Troponin & CK Cardiac Panel Stat Discontinued Medications Aspirin (Aspirin 81 Mg Chew Tab) 324 mg PO NOW ONE Stop: 01/19/23 10:40 Last Admin: 01/19/23 11:21 Dose: Not Given Documented By: SUAD Vital Signs Vital signs: Vital Signs - 8 hr 01/19/23 10:34 01/19/23 13:18 01/19/23 13:30 Temperature 97.7 F Pulse Rate 89 74 74 Respiratory Rate 20 22 20 Blood Pressure 120/70 Pulse Oximetry 99 98 98 Oxygen Delivery Method Room Air 01/19/23 13:31 01/19/23 13:31 Temperature Pulse Rate 74 Respiratory Rate 23 Blood Pressure 149/71 H Pulse Oximetry 99 Oxygen Delivery Method MDM - Arrhythmia/Palpitations Lab Data 01/19/23 10:45 01/19/23 10:45 Labs: Lab Results 01/19/23 Range/Units 10:45 WBC 6.9 (4.5-11.0) X10^3/uL RBC 4.77 (4.5-5.9) X10^6/uL Hgb 14.9 (13.5-17.5) g/dL Hct 42.8 (41-53) % MCV 89.7 (80-100) fL MCH 31.3 (26-34) PG MCHC 34.9 (30-36) % RDW 15.2 H (11.6-14.8) % Plt Count 163 (150-400) X10^3/uL Neut % (Auto) 65.3 (50-75) % Lymph % (Auto) 21.7 L (25-40) % Ballard % (Auto) 10.5 (3-14) % Eos % (Auto) 2.2 (2-4) % Baso % (Auto) 0.3 (0-2) % Neut # (Auto) 4500 (5182-7519) /uL Lymph # (Auto) 1500 (8344-5283) /uL Ballard # (Auto) 700 (0-900) /uL Eos # (Auto) 200 (0-450) /uL Baso # (Auto) 0 (0-100) /uL PT 14.4 H (10.1-12.7) SECONDS INR 1.3 (0.9-1.3) APTT 30 (26-36) SECONDS Sodium 130 L (137-145) mmol/L Potassium 4.0 (3.4-5.1) mmol/L Chloride 95 L (98-107) mmol/L Carbon Dioxide 28 (22-32) mmol/L BUN 29 H (9-20) mg/dL Creatinine 0.98 (0.66-1.25) mg/dL Estimated GFR > 60 (>60) mL/min BUN/Creatinine Ratio 29.6 H (6-22) Glucose 104 (80-110) mg/dL Calcium 8.6 (8.4-10.2) mg/dL Magnesium 2.1 (1.6-2.3) mg/dL Total Bilirubin 1.6 H (0.2-1.3) mg/dL AST 60 H (17-59) IU/L ALT 124 H (<50) IU/L Alkaline Phosphatase 54 (38-126) U/L Total Creatine Kinase 48 L (55-170) U/L Troponin I 0.022 (0.01-0.034) ng/mL Total Protein 6.8 (6.3-8.2) g/dL Albumin 4.0 (3.5-5.0) g/dL Globulin 2.8 (1.7-4.1) g/dL Albumin/Globulin Ratio 1.4 (1.0-2.8) Lipase 40 (23-300) U/L Discharge Plan Departure Patient Disposition: Home Clinical Impression: Atrial fibrillation Instructions: DI for Atrial Fibrillation, DI for Arrhythmias Activity Restrictions/Additional Instructions: If you feel your heart go back into rapid AFib I recommend taking an additional 25 mg of your metoprolol. If your heart rate remains consistently elevated then I recommend coming back to the ER for repeat evaluation. At this time your labs and your imaging is normal. You were currently in sinus rhythm. Keep taking your Eliquis as prescribed. Prescriptions: No Action apixaban 5 mg tablet 5 mg PO BID 30 Days Qty: 180 3RF Yonsa 125 mg tablet 500 mg PO DAILY methylprednisolone 4 mg tablet 4 mg PO BID fluticasone propionate 50 mcg/actuation spray,suspension 2 spray intranasal DAILY Qty: 16 11RF Rx Instructions: administer into each nostril Zyrtec 10 mg capsule 10 mg PO DAILY PRN (Reason: Allergy Symptoms) calcium 500 mg Tablet 500 mg DAILY tamsulosin 0.4 mg capsule 0.8 mg PO BEDTIME Qty: 180 3RF famotidine [Zantac-360 (famotidine)] 20 mg tablet 20 mg PO DAILY vitamin D3-vitamin K2 125-90 mcg capsule 125 cap PO DAILY zinc sulfate 50 mg zinc (220 mg) tablet 50 mg PO DAILY Lactobacillus acidophilus [Probiotic Acidophilus] 1 tab PO DAILY ascorbate calcium (vitamin C) 500 mg tablet 500 mg PO DAILY metoprolol succinate 25 mg tablet extended release 24 hr 25 mg PO DAILY Referrals: Tami Rodríguez DO [Primary Care Provider] - Stand Alone Forms: Patient Portal/API
== END 2023-01-19 13:49 | disposition home or self-care (01) ==
PROVIDERS: Emergency Medicine; Emergency Provider Emergency Medicine; PCP Family Medicine
DX: I48.91 Unspecified atrial fibrillation (principal); Z79.01 Long term (current) use of anticoagulants
CPT/HCPCS: 36415; 71045; 80053; 82550; 83690; 83735; 84484; 85025; 85610; 85730; 93005; 99284

== ENCOUNTER → 2023-02-13 11:13 | Outpatient (CLI) | payer MEDICARE, OTHER, SELFPAY ==
[2022-08-15 11:30] VITALS: BMI 24.4
[2023-02-13 13:35] LABS: Alanine Aminotransferase 74 IU/L (<50); Albumin Globulin Ratio 1.7 (1.0-2.8); Alkaline Phosphatase 46 U/L (38-126); Aspartate Aminotransferase 52 IU/L (17-59); BUN Creatinine Ratio 22.6 (6-22); Bilirubin Total 0.7 mg/dL (0.2-1.3); Blood Urea Nitrogen 19 mg/dL (9-20); Calcium 9.3 mg/dL (8.4-10.2); Carbon Dioxide 28 mmol/L (22-32); Chloride 99 mmol/L (98-107); Estimated Glomerular Filt Rate > 60 mL/min (>60); Globulin 2.4 g/dL (1.7-4.1); Glucose 94 mg/dL (80-110); HEMOLYSIS 30 (0-50); Potassium 4.8 mmol/L (3.4-5.1); Sodium 133 mmol/L (137-145); Total Protein 6.4 g/dL (6.3-8.2)
[2023-02-13 14:03] LABS: Prostate Specific Antigen 1.04 ng/mL (0.10-4.00)
== END ==
PROVIDERS: PCP Family Medicine; Referring Provider Specialist; Visit Provider Specialist
DX: C61 Malignant neoplasm of prostate (principal); R97.20 Elevated prostate specific antigen [PSA]
CPT/HCPCS: 36415; 80053; 84153

== ENCOUNTER → 2023-03-13 13:50 | Outpatient (CLI) | payer MEDICARE, OTHER, SELFPAY ==
[2022-08-15 11:30] VITALS: BMI 24.4
--- NOTE | 2023-03-13 14:24 | DI.RAD.S_ITS ---
PROCEDURE: XR CHEST 2V INDICATIONS: Dyspnea TECHNIQUE: 2 views of the chest were acquired. COMPARISON: [facility], [place], XR CHEST 1V, 01/19/2023, 10:39. FINDINGS: Surgical changes and devices: None. Lungs and pleura: Lungs are clear. No pleural effusions or pneumothorax. Interstitial prominence is unchanged compared to the prior study and is likely chronic. Mediastinum: Mediastinal contours are normal. Heart size is normal. Bones and chest wall: No suspicious bony abnormalities. Soft tissues appear unremarkable. IMPRESSION: No acute cardiopulmonary abnormality is seen. Dictated by: Ramy Puri M.D. on 03/13/2023 at 16:00 Approved by: Ramy Puri M.D. on 03/13/2023 at 16:01
[2023-03-13 15:13] LABS: Influenza A - CEPHEID Flu A NEGATIVE (NEGATIVE); Influenza B - CEPHEID Flu B NEGATIVE (NEGATIVE); Respiratory Syncytial Virus Negative (Negative)
[2023-03-13 15:14] LABS: COVID-19 CEPHEID 4-PLEX PCR Negative (Negative)
== END ==
PROVIDERS: PCP Family Medicine; Referring Provider Physician Assistant; Visit Provider Physician Assistant
DX: R05.1 Acute cough (principal); R06.00 Dyspnea, unspecified; J40 Bronchitis, not specified as acute or chronic
CPT/HCPCS: 0241U; 71046

== ENCOUNTER → 2023-03-22 15:46 | Outpatient (CLI) | payer MEDICARE, OTHER, SELFPAY ==
[2022-08-15 11:30] VITALS: BMI 24.4
[2023-03-22 16:45] LABS: Alanine Aminotransferase 21 IU/L (<50); Albumin Globulin Ratio 1.3 (1.0-2.8); Alkaline Phosphatase 75 U/L (38-126); Aspartate Aminotransferase 27 IU/L (17-59); BUN Creatinine Ratio 27.2 (6-22); Bilirubin Total 1.3 mg/dL (0.2-1.3); Blood Urea Nitrogen 25 mg/dL (9-20); Carbon Dioxide 29 mmol/L (22-32); Chloride 97 mmol/L (98-107); Estimated Glomerular Filt Rate > 60 mL/min (>60); Globulin 3.1 g/dL (1.7-4.1); Glucose 112 mg/dL (80-110); HEMOLYSIS < 15 (0-50); Potassium 4.4 mmol/L (3.4-5.1); Sodium 131 mmol/L (137-145); Total Protein 7.1 g/dL (6.3-8.2)
[2023-03-22 17:14] LABS: Prostate Specific Antigen 1.84 ng/mL (0.10-4.00)
== END ==
PROVIDERS: PCP Family Medicine; Referring Provider Specialist; Visit Provider Specialist
DX: C61 Malignant neoplasm of prostate (principal)
CPT/HCPCS: 36415; 80053; 84153

== ENCOUNTER → 2023-04-25 13:10 | Outpatient (CLI) | payer MEDICARE, OTHER, SELFPAY ==
[2022-08-15 11:30] VITALS: BMI 24.4
[2023-04-25 15:29] LABS: Alanine Aminotransferase 51 IU/L (<50); Albumin 4.2 g/dL (3.5-5.0); Albumin Globulin Ratio 1.4 (1.0-2.8); Alkaline Phosphatase 59 U/L (38-126); Aspartate Aminotransferase 37 IU/L (17-59); Bilirubin Total 1.2 mg/dL (0.2-1.3); Bilirubin Unconjugated 1.1 mg/dL (0.0-1.1); HEMOLYSIS < 15 (0-50); Total Protein 7.2 g/dL (6.3-8.2)
[2023-04-25 15:54] LABS: Prostate Specific Antigen 1.11 ng/mL (0.10-4.00)
== END ==
PROVIDERS: PCP Family Medicine; Referring Provider Specialist; Visit Provider Specialist
DX: C61 Malignant neoplasm of prostate (principal); C79.51 Secondary malignant neoplasm of bone; C78.00 Secondary malignant neoplasm of unspecified lung; R97.20 Elevated prostate specific antigen [PSA]
CPT/HCPCS: 36415; 80076; 84153

== ENCOUNTER → 2023-05-30 11:53 | Outpatient (CLI) | payer MEDICARE, OTHER, SELFPAY ==
[2022-08-15 11:30] VITALS: BMI 24.4
[2023-06-03 05:51] LABS: PSA, Total 0.5 ng/mL (0.0-4.0)
== END ==
PROVIDERS: PCP Family Medicine; Referring Provider Specialist; Visit Provider Specialist
DX: C61 Malignant neoplasm of prostate (principal); R97.20 Elevated prostate specific antigen [PSA]
CPT/HCPCS: 36415; 84153; 84154

== ENCOUNTER → 2023-06-05 13:44 | Outpatient (CLI) | payer MEDICARE, OTHER, SELFPAY ==
[2022-08-15 11:30] VITALS: BMI 24.4
[2023-06-05 15:28] LABS: Alanine Aminotransferase 35 IU/L (<50); Albumin 4.1 g/dL (3.5-5.0); Albumin Globulin Ratio 1.5 (1.0-2.8); Alkaline Phosphatase 60 U/L (38-126); Aspartate Aminotransferase 30 IU/L (17-59); Bilirubin Total 1.2 mg/dL (0.2-1.3); Blood Urea Nitrogen 27 mg/dL (9-20); Carbon Dioxide 29 mmol/L (22-32); Chloride 98 mmol/L (98-107); Estimated Glomerular Filt Rate > 60 mL/min (>60); Globulin 2.7 g/dL (1.7-4.1); Glucose 82 mg/dL (80-110); HEMOLYSIS < 15 (0-50); Potassium 4.2 mmol/L (3.4-5.1); Sodium 136 mmol/L (137-145); Total Protein 6.8 g/dL (6.3-8.2)
== END ==
PROVIDERS: PCP Family Medicine; Referring Provider Specialist; Visit Provider Specialist
DX: C61 Malignant neoplasm of prostate (principal); C78.00 Secondary malignant neoplasm of unspecified lung; C79.51 Secondary malignant neoplasm of bone
CPT/HCPCS: 36415; 51798; 80053; 81002; 96402; 99215; J9155

== ENCOUNTER → 2023-07-03 12:09 | Outpatient (CLI) | payer MEDICARE, OTHER, SELFPAY ==
[2022-08-15 11:30] VITALS: BMI 24.4
[2023-07-03 13:35] LABS: Alanine Aminotransferase 40 IU/L (<50); Albumin Globulin Ratio 1.4 (1.0-2.8); Alkaline Phosphatase 61 U/L (38-126); Aspartate Aminotransferase 34 IU/L (17-59); BUN Creatinine Ratio 23.3 (6-22); Bilirubin Total 1.4 mg/dL (0.2-1.3); Blood Urea Nitrogen 24 mg/dL (9-20); Carbon Dioxide 29 mmol/L (22-32); Chloride 101 mmol/L (98-107); Estimated Glomerular Filt Rate > 60 mL/min (>60); Globulin 2.9 g/dL (1.7-4.1); Glucose 72 mg/dL (80-110); HEMOLYSIS < 15 (0-50); Potassium 4.1 mmol/L (3.4-5.1); Sodium 137 mmol/L (137-145); Total Protein 6.9 g/dL (6.3-8.2)
== END ==
PROVIDERS: PCP Family Medicine; Referring Provider Specialist; Visit Provider Specialist
DX: C61 Malignant neoplasm of prostate (principal); C79.51 Secondary malignant neoplasm of bone; C78.00 Secondary malignant neoplasm of unspecified lung
CPT/HCPCS: 36415; 80053; 84153

== ENCOUNTER → 2023-07-31 14:40 | Outpatient (CLI) | payer MEDICARE, OTHER, SELFPAY ==
[2022-08-15 11:30] VITALS: BMI 24.4
[2023-07-31 16:42] LABS: Prostate Specific Antigen 0.478 ng/mL (0.10-4.00)
== END ==
PROVIDERS: PCP Family Medicine; Referring Provider Specialist; Visit Provider Specialist
DX: R97.20 Elevated prostate specific antigen [PSA] (principal)
CPT/HCPCS: 36415; 84153

== ENCOUNTER → 2023-09-04 14:19 | Outpatient (CLI) | payer MEDICARE, OTHER, SELFPAY ==
[2022-08-15 11:30] VITALS: BMI 24.4
[2023-09-04 17:02] LABS: Prostate Specific Antigen 0.289 ng/mL (0.10-4.00)
== END ==
PROVIDERS: PCP Family Medicine; Referring Provider Specialist; Visit Provider Specialist
DX: C61 Malignant neoplasm of prostate (principal); C78.00 Secondary malignant neoplasm of unspecified lung; C79.51 Secondary malignant neoplasm of bone; N40.0 Benign prostatic hyperplasia without lower urinary tract symptoms; R97.20 Elevated prostate specific antigen [PSA]
CPT/HCPCS: 84153

== ENCOUNTER → 2023-09-11 17:36 | Outpatient (CLI) | payer MEDICARE, OTHER, SELFPAY ==
[2022-08-15 11:30] VITALS: BMI 24.4
[2023-09-11 19:11] LABS: Alanine Aminotransferase 28 IU/L (<50); Albumin 3.9 g/dL (3.5-5.0); Albumin Globulin Ratio 1.8 (1.0-2.8); Alkaline Phosphatase 63 U/L (38-126); Aspartate Aminotransferase 30 IU/L (17-59); Bilirubin Total 0.8 mg/dL (0.2-1.3); Blood Urea Nitrogen 29 mg/dL (9-20); Calcium 8.4 mg/dL (8.4-10.2); Carbon Dioxide 30 mmol/L (22-32); Chloride 105 mmol/L (98-107); Estimated Glomerular Filt Rate > 60 mL/min (>60); Globulin 2.2 g/dL (1.7-4.1); Glucose 111 mg/dL (80-110); HEMOLYSIS < 15 (0-50); Potassium 4.6 mmol/L (3.4-5.1); Sodium 138 mmol/L (137-145); Total Protein 6.1 g/dL (6.3-8.2)
== END ==
PROVIDERS: PCP Family Medicine; Referring Provider Specialist; Visit Provider Specialist
DX: C61 Malignant neoplasm of prostate (principal); C79.51 Secondary malignant neoplasm of bone
CPT/HCPCS: 36415; 80053

== ENCOUNTER → 2023-12-06 12:41 | Outpatient (CLI) | payer MEDICARE, OTHER, SELFPAY ==
[2023-09-12 11:39] VITALS: BMI 24.4
[2023-12-06 14:50] LABS: Alanine Aminotransferase 37 IU/L (<50); Albumin 3.9 g/dL (3.5-5.0); Albumin Globulin Ratio 1.9 (1.0-2.8); Alkaline Phosphatase 46 U/L (38-126); Aspartate Aminotransferase 35 IU/L (17-59); BUN Creatinine Ratio 23.6 (6-22); Bilirubin Total 1.2 mg/dL (0.2-1.3); Blood Urea Nitrogen 25 mg/dL (9-20); Calcium 9.1 mg/dL (8.4-10.2); Carbon Dioxide 26 mmol/L (22-32); Chloride 101 mmol/L (98-107); Estimated Glomerular Filt Rate > 60 mL/min (>60); Globulin 2.1 g/dL (1.7-4.1); Glucose 89 mg/dL (80-110); HEMOLYSIS < 15 (0-50); Potassium 4.5 mmol/L (3.4-5.1); Sodium 135 mmol/L (137-145)
[2023-12-06 15:18] LABS: Prostate Specific Antigen 0.124 ng/mL (0.10-4.00)
== END ==
LOC: LAB 12:42
PROVIDERS: PCP Family Medicine; Referring Provider Specialist; Visit Provider Specialist
DX: C61 Malignant neoplasm of prostate (principal); C79.51 Secondary malignant neoplasm of bone
CPT/HCPCS: 36415; 80053; 84153

== ENCOUNTER → 2024-02-01 11:45 | Outpatient (CLI) | payer MEDICARE, OTHER, SELFPAY ==
[2023-09-12 11:39] VITALS: BMI 24.4
--- NOTE | 2024-02-01 11:46 | DI.RAD.S_ITS ---
PROCEDURE: XR DEXA AXIAL SKELETON INDICATIONS: 78 y/o M w/ prostate cancer on ADT, please eval [employer]. COMPARISON: [facility], CR, XR DEXA AXIAL SKELETON, 08/17/2022, 14:39. FINDINGS: Lumbar Spine: Bone mineral density 1.206 g/cm2, T score 1.4 compared to 0.6. Left Hip: Bone mineral density 0.988 g/cm2, T score 0.4, compared to -0.1 Left Femoral Neck: Bone mineral density 0.913 g/cm2, T score 0.6, compared to 0.5. Right Hip: Bone mineral density 0.971 g/cm2, T score 0.2, compared to 0. Right Femoral Neck: Bone mineral density 0.926 g/cm2, T score 0.7,. Fracture Risk Calculation (when applicable): 10-year fracture risk of a major osteoporotic fracture 4.5 percent and of a hip fracture 0.9 percent. (T score greater or equal to -1.0 to: NORMAL) (T score from -1.1 to -2.4: OSTEOPENIA) (T score less than or equal to -2.5: OSTEOPOROSIS) IMPRESSION: Normal bone mineral density. Follow-up guidelines as follows: Osteoporosis: Consider a repeat DEXA and Vertebral Fracture Assessment (VFA) exam in 2 years or sooner if medically necessary, to reassess this patient's status. Osteopenia: Consider a repeat DEXA in 2-3 years to reassess this patient's status, or if there is a new clinical indication. Normal: Consider a repeat DEXA in 5 years or sooner, or if there is a new clinical indication. All treatment decisions require clinical judgment and consideration of individual patient factors, including patient preferences, comorbidities, previous drug use, risk factors not captured in the FRAX model (e.g., frailty, falls, vitamin D deficiency, increased bone turnover, interval significant decline in bone density ) and possible under- or over-estimation of fracture risk by FRAX. In addition, the NOF Guide recommends that FDA-approved medical therapies be considered in postmenopausal women and men age >= 50 years with a: * Hip or vertebral (clinical or morphometric) fracture * T-score of <=-2.5 at the spine or hip * Ten-year fracture probability by FRAX of >= 3% for hip fracture or >=20% for major osteoporotic fracture. People with diagnosed cases of osteoporosis or at high risk for fracture should have regular bone mineral density tests. For patients eligible for Medicare, routine testing is allowed once every 2 years. The testing frequency can be increased to one year for patients who have rapidly progressing disease, those who are receiving or discontinuing medical therapy to restore bone mass, or have additional risk factors. Dictated by: Chantell Yang M.D. on 02/01/2024 at 15:33 Approved by: Chantell Yang M.D. on 02/01/2024 at 15:35
== END ==
PROVIDERS: PCP Family Medicine; Referring Provider Urology; Visit Provider Urology
DX: C61 Malignant neoplasm of prostate; C78.00 Secondary malignant neoplasm of unspecified lung; C79.51 Secondary malignant neoplasm of bone
CPT/HCPCS: 77080

== ENCOUNTER → 2024-03-03 12:46 | Outpatient (CLI) | payer MEDICARE, OTHER, SELFPAY ==
[2023-09-12 11:39] VITALS: BMI 24.4
[2024-03-03 13:26] LABS: Alanine Aminotransferase 33 IU/L (<50); Albumin 4.1 g/dL (3.5-5.0); Albumin Globulin Ratio 1.8 (1.0-2.8); Alkaline Phosphatase 43 U/L (38-126); Aspartate Aminotransferase 34 IU/L (17-59); Blood Urea Nitrogen 24 mg/dL (9-20); Calcium 9.2 mg/dL (8.4-10.2); Carbon Dioxide 31 mmol/L (22-32); Chloride 102 mmol/L (98-107); Estimated Glomerular Filt Rate > 60 mL/min (>60); Globulin 2.3 g/dL (1.7-4.1); Glucose 81 mg/dL (80-110); HEMOLYSIS < 15 (0-50); Potassium 4.2 mmol/L (3.4-5.1); Sodium 136 mmol/L (137-145); Total Protein 6.4 g/dL (6.3-8.2)
[2024-03-03 13:57] LABS: Prostate Specific Antigen 0.078 ng/mL (0.10-4.00)
== END ==
PROVIDERS: PCP Family Medicine; Referring Provider Urology; Visit Provider Urology
DX: C61 Malignant neoplasm of prostate (principal); C79.51 Secondary malignant neoplasm of bone; C78.00 Secondary malignant neoplasm of unspecified lung; N13.8 Other obstructive and reflux uropathy; N40.3 Nodular prostate with lower urinary tract symptoms; R33.9 Retention of urine, unspecified; R97.20 Elevated prostate specific antigen [PSA]; N40.1 Benign prostatic hyperplasia with lower urinary tract symptoms; R35.1 Nocturia
CPT/HCPCS: 36415; 80053; 84153

== ENCOUNTER → 2024-04-14 12:32 | Outpatient (CLI) | payer MEDICARE, OTHER, SELFPAY ==
[2023-09-12 11:39] VITALS: BMI 24.4
[2024-04-14 14:14] LABS: Alanine Aminotransferase 31 IU/L (<50); Albumin 4.1 g/dL (3.5-5.0); Alkaline Phosphatase 45 U/L (38-126); Aspartate Aminotransferase 34 IU/L (17-59); BUN Creatinine Ratio 29.5 (6-22); Bilirubin Total 0.9 mg/dL (0.2-1.3); Blood Urea Nitrogen 28 mg/dL (9-20); Calcium 9.3 mg/dL (8.4-10.2); Carbon Dioxide 30 mmol/L (22-32); Chloride 101 mmol/L (98-107); Estimated Glomerular Filt Rate > 60 mL/min (>60); Globulin 2.1 g/dL (1.7-4.1); Glucose 69 mg/dL (80-110); HEMOLYSIS < 15 (0-50); Potassium 4.3 mmol/L (3.4-5.1); Sodium 137 mmol/L (137-145); Total Protein 6.2 g/dL (6.3-8.2)
== END ==
PROVIDERS: PCP Family Medicine; Referring Provider Urology; Visit Provider Urology
DX: C61 Malignant neoplasm of prostate (principal)
CPT/HCPCS: 36415; 80053

== ENCOUNTER → 2024-06-03 11:57 | Outpatient (CLI) | payer MEDICARE, OTHER, SELFPAY ==
[2023-09-12 11:39] VITALS: BMI 24.4
[2024-06-03 14:02] LABS: Alanine Aminotransferase 31 IU/L (<50); Albumin 4.1 g/dL (3.5-5.0); Alkaline Phosphatase 47 U/L (38-126); Aspartate Aminotransferase 33 IU/L (17-59); BUN Creatinine Ratio 25.5 (6-22); Bilirubin Total 1.2 mg/dL (0.2-1.3); Blood Urea Nitrogen 25 mg/dL (9-20); Carbon Dioxide 29 mmol/L (22-32); Chloride 100 mmol/L (98-107); Estimated Glomerular Filt Rate > 60 mL/min (>60); Globulin 2.1 g/dL (1.7-4.1); Glucose 84 mg/dL (80-110); HEMOLYSIS < 15 (0-50); Potassium 4.3 mmol/L (3.4-5.1); Sodium 135 mmol/L (137-145); Total Protein 6.2 g/dL (6.3-8.2)
[2024-06-03 14:31] LABS: Prostate Specific Antigen < 0.064 ng/mL (0.10-4.00)
== END ==
LOC: LAB 12:02
PROVIDERS: PCP Family Medicine; Referring Provider Urology; Visit Provider Urology
DX: C61 Malignant neoplasm of prostate (principal); N40.1 Benign prostatic hyperplasia with lower urinary tract symptoms; R35.1 Nocturia
CPT/HCPCS: 36415; 80053; 84153

== ENCOUNTER → 2024-07-07 12:20 | Outpatient (CLI) | payer MEDICARE, OTHER, SELFPAY ==
[2023-09-12 11:39] VITALS: BMI 24.4
[2024-07-07 13:52] LABS: Alanine Aminotransferase 30 IU/L (<50); Albumin 4.1 g/dL (3.5-5.0); Albumin Globulin Ratio 1.9 (1.0-2.8); Alkaline Phosphatase 51 U/L (38-126); Aspartate Aminotransferase 32 IU/L (17-59); BUN Creatinine Ratio 26.7 (6-22); Bilirubin Total 1.1 mg/dL (0.2-1.3); Blood Urea Nitrogen 24 mg/dL (9-20); Carbon Dioxide 29 mmol/L (22-32); Chloride 99 mmol/L (98-107); Estimated Glomerular Filt Rate > 60 mL/min (>60); Globulin 2.2 g/dL (1.7-4.1); Glucose 77 mg/dL (80-110); HEMOLYSIS < 15 (0-50); Potassium 3.9 mmol/L (3.4-5.1); Sodium 135 mmol/L (137-145); Total Protein 6.3 g/dL (6.3-8.2)
== END ==
PROVIDERS: PCP Family Medicine; Referring Provider Family Medicine; Visit Provider Family Medicine
DX: Z00.00 Encounter for general adult medical examination without abnormal findings (principal); C61 Malignant neoplasm of prostate; I48.91 Unspecified atrial fibrillation
CPT/HCPCS: 36415; 80053

== ENCOUNTER → 2024-07-15 09:10 | Outpatient (CLI) | payer MEDICARE, OTHER, SELFPAY ==
[2023-09-12 11:39] VITALS: BMI 24.4
--- NOTE | 2024-07-15 09:13 | DI.ECHO.S_ITS ---
[facility]+ [facility] : : [address] : : [place] : : [id number] : : Phone: [phone] Echocardiogram Report + + :Name: DERICK BARROW Study Date: 07/15/2024 Height: 74 in : :Hospital ReadingLocation: Weight: 195 lb : : Gender: Male BSA: 2.1 m2 : :: 1945 Age: 78 yrs BP: 157/94 mmHg: :Reason For Study: ATRIAL FIBRILLATION : :Ordering Physician: TENISHA, : :CONNIE Vasquez Performed By: Brandi Jack : :Referring: CONNIE BROWN : + + Interpretation Summary The ejection fraction is estimated to be 60-65%. Diastolic parameters suggest probable normal left ventricular diastolic function and normal filling pressures. The right ventricle is normal in size and function. No valvular abnormalities. Pulmonary artery pressures cannot be estimated because of the lack of a measurable TR jet velocity but the IVC suggests a CVP of around 3 mmHg. No change compared to prior study 08/15/2022. Procedure: A two-dimensional transthoracic echocardiogram with color flow and Doppler was performed. The study quality was technically adequate. Comparison is made with the echocardiogram of 08/15/2022. The patient was in sinus rhythm with heart rates between 65-84 bpm during the exam. Left Ventricle: The left ventricle is normal in size. Proximal septal thickening is noted. The ejection fraction is estimated to be 60-65%. Diastolic parameters suggest probable normal left ventricular diastolic function and normal filling pressures. Right Ventricle: The right ventricle is normal in size and function. Atria: The left atrial size is normal. Right atrial size is normal. There is no Doppler evidence for an interatrial shunt. Mitral Valve: The mitral valve leaflets appear to open well. There is trace mitral regurgitation. Aortic Valve: The aortic valve is trileaflet. The aortic valve opens well. There is no aortic valve stenosis. No aortic regurgitation is present. Tricuspid Valve: The tricuspid valve leaflets are thin and pliable. There is trace tricuspid regurgitation. Pulmonary artery pressures cannot be estimated because of the lack of a measurable TR jet velocity but the IVC suggests a CVP of around 3 mmHg. Pulmonic Valve: The pulmonic valve leaflets are thin and pliable; valve motion is normal. There is mild pulmonic regurgitation. Great Vessels: The aortic root is normal size. The dimensions of the ascending aorta are normal. The IVC is of normal diameter and collapses greater than 50% with a sniff. This suggests a low right atrial pressure of 3 mm Hg. Pericardium/ Pleura There is no pericardial effusion. There is no pleural effusion. MMode/2D Measurements & Calculations LVIDd: 4.6 cm LVOT diam: 2.0 cm LVIDs: 2.9 cm Ao root diam: 3.2 cm FS: 36.5 % asc Aorta Diam: 3.3 cm IVSd: 0.82 cm Ao Arch Diam (Prox Trans): 2.5 cm LVPWd: 0.82 cm LV ortega. diameter/BSA (cm/m^2): 2.1 LV sys. diameter/BSA (cm/m^2): 1.4 LA A2 area: 17.3 cm2 RA long axis: 5.8 cm LA A4 area: 19.3 cm2 RA area: 20.1 cm2 LA length (vol): 6.4 cm RA vol: 59.7 ml LA vol: 44.3 ml RA : 27.8 ml/m2 LA vol index: 20.6 ml/m2 IVC diam: 1.6 cm RVD1 (basal): 3.6 cm RVD2 (mid): 2.7 cm TAPSE: 2.2 cm Doppler Measurements & Calculations Ao V2 max: 123.8 cm/sec LVOT Max Usman: 122.4 cm/sec Ao V2 mean: 89.1 cm/sec LV V1 max P.0 mmHg Ao max P.1 mmHg LV V1 VTI: 27.5 cm Ao mean P.5 mmHg SHELLY(I,D): 3.3 cm2 Ao V2 VTI: 27.3 cm SHELLY(V,D): 3.2 cm2 sev ratio: 1.0 SHELLY indexed to BSA (cm^2/m^2): 1.5 MV E max usman: 63.5 cm/sec PA V2 max: 114.9 cm/sec MV A max usman: 64.0 cm/sec PA V2 mean: 75.9 cm/sec MV E/A: 0.99 PA mean P.7 mmHg Med Peak E' Usman: 9.0 cm/sec PA pr(Accel): 28.9 mmHg E/E' med: 7.1 Lat Peak E' Usman: 10.2 cm/sec E/E' lat: 6.3 E/e' average: 6.7 MV dec time: 0.20 sec Pulm A Revs Usman: 31.9 cm/sec SV(LVOT): 90.0 ml Pulm A Revs Dur: 0.09 sec Reading Physician:04:53 PM
== END ==
PROVIDERS: PCP Family Medicine; Referring Provider Internal Medicine Cardiovascular Disease; Visit Provider Internal Medicine Cardiovascular Disease
DX: I48.91 Unspecified atrial fibrillation (principal); R55 Syncope and collapse; I37.1 Nonrheumatic pulmonary valve insufficiency
CPT/HCPCS: 93306

== ENCOUNTER 2024-08-06 04:54 | Observation (INO) | payer MEDICARE, OTHER, SELFPAY ==
[2023-09-12 11:39] VITALS: BMI 24.4
[2024-08-06] VITALS (44 sets, daily range): BP systolic 86–150; BP diastolic 55–98; PULSE 57–160; RESP 16–28; TEMP 36.4–36.8; O2SAT 93–98; BMI 25.0
--- NOTE | 2024-08-06 05:02 | EKG_ITS ---
[facility] [address] [place] [address] Test Date: 2024-08-06 Pat Name: Moise Araya Department: [facility] Room: Gender: Male [employer]: : 1945 Requested By: Order Number: [id number] Reading MD: Percy Rowley MD Measurements Intervals [place] Rate: 153 P: [place]: QRS: 32 QRSD: 62 T: 66 QT: 274 QTc: 437 Interpretive Statements Critical Test Result: High HR Atrial fibrillation with rapid ventricular response Nonspecific ST abnormality Electronically Signed On 08-06-2024 6:58:03 PDT by Percy Rowley MD
--- NOTE | 2024-08-06 05:02 | ED.ARRPALP ---
HPI - Arrhythmia/Palpitations <Harsh De La Rosa DO - Last Filed: 08/06/24 06:10> General Chief Complaint: Arrhythmia/Palpitations Stated Complaint: afib for 1 hour Time Seen by Provider: 08/06/24 05:02 History of Present Illness HPI narrative: 78-year-old male with a past medical history of AFib on Eliquis and metoprolol for rate control presents to the emergency department from home for evaluation of palpitations, he states that at around 1:00 a.m. he noticed that he was having some palpitations, states it is consistent with his history of AFib, he states that in the past he did need to be cardioverted but ?it did not take states that they were able to get it under control with medication. He states that at around 1:00 a.m. he did take an extra dose of his metoprolol but due to persistent symptoms decided come into the ED for further evaluation and treatment. Patient denies any other symptoms such as headache visual disturbance shortness breath fever chills nausea vomiting abdominal pain or any other GI/ symptoms time. Related Data Home Medications Medication Instructions Recorded Confirmed cetirizine 10 mg capsule (Zyrtec) 10 mg PO DAILY PRN Allergy Symptoms 05/04/22 07/04/24 Lactobacillus acidophilus 1 tab PO DAILY 07/19/22 07/04/24 [Probiotic Acidophilus] ascorbate calcium (vitamin C) 500 500 mg PO DAILY 07/19/22 07/04/24 mg tablet famotidine 20 mg tablet 20 mg PO DAILY 07/19/22 07/04/24 (Zantac-360 (famotidine)) vitamin D3 125 mcg (5,000 125 cap PO DAILY 07/19/22 07/04/24 unit)-vitamin K2 90 mcg capsule zinc sulfate 50 mg zinc (220 mg) 50 mg PO DAILY 07/19/22 07/04/24 tablet calcium 500 mg tablet 500 mg DAILY 10/19/22 07/04/24 metoprolol succinate 25 mg 25 mg PO DAILY 11/09/22 07/04/24 tablet,extended release 24 hr denosumab 60 mg/mL subcutaneous 60 mg SUBCUT [id number] 06/22/23 07/04/24 syringe (Prolia) leuprolide (3 month) 22.5 mg (3 22.5 mg SUBCUT [id number] 06/10/24 07/04/24 month) subcutaneous syringe ([employer]) Previous Rx's Medication Instructions Recorded apixaban 5 mg tablet 5 mg PO BID 30 days #180 tabs 06/22/23 methylprednisolone 4 mg tablet 4 mg PO BID #180 tabs 09/12/23 sildenafil 50 mg tablet 50 mg PO DAILY PRN sexual activity 03/14/24 #10 tabs abiraterone 250 mg tablet 750 mg (3 x 250 mg) PO DAILY #360 03/27/24 tabs fluticasone propionate 50 2 spray intranasal DAILY #16 grams 07/02/24 mcg/actuation nasal spray,suspension albuterol sulfate 90 mcg/actuation 2 puff inhalation Q4-6H PRN 07/04/24 aerosol inhaler shortness of breath or wheezing #6.7 grams tamsulosin 0.4 mg capsule 0.8 mg (2 x 0.4 mg) PO BEDTIME 07/24/24 #180 caps Allergies Allergy/AdvReac Type Severity Reaction Status Date / Time No Known Drug Allergies Allergy Verified 07/04/24 11:36 Review of Systems <Harsh De La Rsoa DO - Last Filed: 08/06/24 06:10> Review of Systems Narrative: General: Denies fever, chills, weight loss HEENT: Denies headache, eye drainage, eye irritation, head trauma, sore throat, voice change Cardiovascular: Positive palpitation Denies any chest pain, tachycardia Respiratory: Denies any shortness of breath, cough, wheeze, stridor GI/: Denies any abdominal pain, nausea, vomiting, diarrhea, bright red blood per rectum, melanotic stools, urinary frequency, urinary retention, dysuria, hematuria MSK: Denies any joint pain, muscle pains, swelling Skin: Denies any rashes, lesions, discoloration Neuro: Denies any headache, lightheadedness, dizziness, fainting, weakness Psych: Denies SI/HI Patient History <Harsh De La Rosa DO - Last Filed: 08/06/24 06:10> Medical History (Updated 08/06/24 @ 05:31 by Harsh De La Rosa DO) Chronic steroid use 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 Prostate cancer Right hydrocele Nodular prostate with urinary obstruction Elevated PSA Elevated blood pressure reading without diagnosis of hypertension Medicare annual wellness visit, subsequent BPH (benign prostatic hyperplasia) Subclinical hypothyroidism Thumb pain Arthritis Sinus drainage Right inguinal hernia Surgical History Anesthesia History of hernia repair (~02/2019) Status post Mohs surgery (~2016) Hx of eye surgery (~195) Hx of bilateral cataract extraction (~2007) Family History Brother CAD (coronary artery disease) Diabetes mellitus Hyperlipidemia Hypertension Sister Diabetes mellitus Hyperlipidemia Hypertension Social History marital status: number of children: 1 household members: spouse Smoking Status: Never smoker alcohol intake: current substance use type: marijuana (cannibus occ) caffeine: Yes Type(s) of exercise: bicycling frequency: 3-4 times per week duration: > 90 minutes/day alcohol intake frequency: holidays/special occasions only Exam <Harsh De La Rosa DO - Last Filed: 08/06/24 06:10> Narrative Exam Narrative: General: Cooperative, well-developed, not in acute distress HEENT: Normocephalic, atraumatic, PERRLA, normal sclera, eyelids normal Neck: Active full range of motion, atraumatic Chest: Normal to inspection, negative crepitus, no overlying erythema ecchymosis Respiratory: Normal respiratory effort, not in acute respiratory distress, clear to auscultation bilaterally negative cough, wheeze, tachypnea, rhonchi, rales Cardiology: Irregularly irregular negative gallop, murmur, rubs GI/: No tenderness to palpation, soft, non rigid, normal to inspection, exam deferred MSK: Full active range of motion in all 4 extremities, atraumatic, no tenderness to palpation of any bony prominences Skin: No rashes or lesions noted Neuro: Alert awake oriented x3, moves all 4 extremities spontaneously, cranial nerves intact, able to answer all questions appropriately follows commands appropriately Psych: Cooperative, negative suicidal or homicidal ideations Initial Vital Signs Initial Vital Signs: Vital Signs Temperature 97.6 F 08/06/24 05:00 Pulse Rate 154 H 08/06/24 05:00 Respiratory Rate 24 08/06/24 05:00 Blood Pressure 143/98 H 08/06/24 05:00 Pulse Oximetry 94 08/06/24 05:00 Oxygen Delivery Method Room Air 08/06/24 05:00 <Bean Montgomery MD - Last Filed: 08/06/24 07:45> Initial Vital Signs Initial Vital Signs: Vital Signs Temperature 97.6 F 08/06/24 05:00 Pulse Rate 154 H 08/06/24 05:00 Respiratory Rate 24 08/06/24 05:00 Blood Pressure 143/98 H 08/06/24 05:00 Pulse Oximetry 94 08/06/24 05:00 Oxygen Delivery Method Room Air 08/06/24 05:00 Course <Harsh De La Rosa DO - Last Filed: 08/06/24 06:10> Orders Ordered: ED Orders 08/06/24 04:56 EKG-12 Lead Stat 08/06/24 05:05 XR chest 1V Stat 08/06/24 05:10 Complete Blood Count AUTO DIFF Stat Comprehensive Metabolic Panel Stat Lipase Stat MAG [Magnesium] Stat Troponin & CK Cardiac Panel Stat 08/06/24 07:10 Troponin I Stat Sodium Chloride (Normal Saline 0.9%) 1,000 mls @ 150 mls/hr IV CONT SHANTHI Last Admin: 08/06/24 05:14 Dose: 150 mls/hr Documented By: NATTY Diltiazem HCl 125 mg/ Sodium (Chloride) 125 mls @ 5 mls/hr IV TITRATE SHANTHI; Protocol Last Titration: 08/06/24 07:07 Dose: 0 mg/hr, 0 mls/hr Documented By: Admin: 08/06/24 06:29 Dose: 5 mg/hr, 5 mls/hr Documented By: NATTY Discontinued Medications Diltiazem HCl (Diltiazem 25 Mg/5 Ml Sdv) 20 mg IV NOW ONE Stop: 08/06/24 05:10 Last Admin: 08/06/24 05:14 Dose: 20 mg Documented By: NATTY Magnesium Sulfate (Magnesium Sulfate) 2 gm in 50 mls @ 150 mls/hr IV NOW ONE Stop: 08/06/24 05:24 Last Infusion: 08/06/24 05:43 Dose: Infused Documented By: NATTY Co-signed By: JAMSHID Admin: 08/06/24 05:22 Dose: 150 mls/hr Documented By: NATTY Co-signed By: JAMSHID Ceftriaxone Sodium 1,000 mg/ (Sodium Chloride) 100 mls @ 200 mls/hr IV NOW ONE Stop: 08/06/24 05:31 Last Infusion: 08/06/24 06:10 Dose: Infused Documented By: Admin: 08/06/24 05:37 Dose: 200 mls/hr Documented By: NATTY Doxycycline Hyclate 100 mg/ (Sodium Chloride) 100 mls @ 100 mls/hr IV NOW ONE Stop: 08/06/24 05:31 Last Admin: 08/06/24 06:11 Dose: 100 mls/hr Documented By: NATTY Vital Signs Vital signs: Vital Signs - 8 hr 08/06/24 05:00 08/06/24 05:00 08/06/24 05:00 Temperature 97.6 F Pulse Rate 154 H 153 H Respiratory Rate 24 Blood Pressure 143/98 H 143/98 H Pulse Oximetry 94 Oxygen Delivery Method Room Air 08/06/24 05:14 08/06/24 05:18 08/06/24 05:18 Temperature Pulse Rate 160 H 157 H Respiratory Rate 21 Blood Pressure 143/98 H 119/83 Pulse Oximetry 97 Oxygen Delivery Method 08/06/24 05:24 08/06/24 05:24 08/06/24 05:25 Temperature Pulse Rate 136 H 127 H Respiratory Rate 19 20 Blood Pressure 100/57 L Pulse Oximetry 96 97 Oxygen Delivery Method 08/06/24 05:25 08/06/24 05:30 08/06/24 05:30 Temperature Pulse Rate 114 H Respiratory Rate 21 Blood Pressure 99/57 L 98/55 L Pulse Oximetry 96 Oxygen Delivery Method 08/06/24 05:35 08/06/24 05:35 08/06/24 05:37 Temperature Pulse Rate 112 H 133 H Respiratory Rate 19 28 H Blood Pressure 90/64 Pulse Oximetry 96 95 Oxygen Delivery Method 08/06/24 05:37 08/06/24 05:40 08/06/24 05:40 Temperature Pulse Rate 120 H Respiratory Rate 25 H Blood Pressure 95/69 101/66 Pulse Oximetry 95 Oxygen Delivery Method 08/06/24 05:45 08/06/24 05:45 08/06/24 05:50 Temperature Pulse Rate 152 H 98 H Respiratory Rate 19 20 Blood Pressure 93/64 Pulse Oximetry 96 96 Oxygen Delivery Method 08/06/24 05:50 08/06/24 05:55 08/06/24 05:55 Temperature Pulse Rate 97 H Respiratory Rate 19 Blood Pressure 94/59 L 89/63 L Pulse Oximetry 94 Oxygen Delivery Method 08/06/24 06:00 08/06/24 06:00 08/06/24 06:05 Temperature Pulse Rate 108 H 131 H Respiratory Rate 22 27 H Blood Pressure 101/70 Pulse Oximetry 95 95 Oxygen Delivery Method 08/06/24 06:05 08/06/24 06:10 08/06/24 06:10 Temperature Pulse Rate 152 H Respiratory Rate 21 Blood Pressure 100/64 112/65 Pulse Oximetry 95 Oxygen Delivery Method 08/06/24 06:15 08/06/24 06:15 08/06/24 06:20 Temperature Pulse Rate 109 H Respiratory Rate Blood Pressure 127/66 100/58 L Pulse Oximetry 96 Oxygen Delivery Method 08/06/24 06:20 08/06/24 06:25 08/06/24 06:25 Temperature Pulse Rate 114 H 152 H Respiratory Rate 22 20 Blood Pressure 108/66 Pulse Oximetry 96 95 Oxygen Delivery Method 08/06/24 06:30 08/06/24 06:30 08/06/24 06:35 Temperature Pulse Rate 107 H Respiratory Rate 19 Blood Pressure 96/67 104/68 Pulse Oximetry 95 Oxygen Delivery Method 08/06/24 06:35 Temperature Pulse Rate 152 H Respiratory Rate 20 Blood Pressure Pulse Oximetry 96 Oxygen Delivery Method <Bean Montgomery MD - Last Filed: 08/06/24 07:45> Orders Ordered: ED Orders 08/06/24 04:56 EKG-12 Lead Stat 08/06/24 05:05 XR chest 1V Stat 08/06/24 05:10 Complete Blood Count AUTO DIFF Stat Comprehensive Metabolic Panel Stat Lipase Stat MAG [Magnesium] Stat Troponin & CK Cardiac Panel Stat 08/06/24 07:10 Troponin I Stat Sodium Chloride (Normal Saline 0.9%) 1,000 mls @ 150 mls/hr IV CONT SHANTHI Last Admin: 08/06/24 05:14 Dose: 150 mls/hr Documented By: NATTY Diltiazem HCl 125 mg/ Sodium (Chloride) 125 mls @ 5 mls/hr IV TITRATE SHANTHI; Protocol Last Titration: 08/06/24 07:07 Dose: 0 mg/hr, 0 mls/hr Documented By: Admin: 08/06/24 06:29 Dose: 5 mg/hr, 5 mls/hr Documented By: NATTY Discontinued Medications Diltiazem HCl (Diltiazem 25 Mg/5 Ml Sdv) 20 mg IV NOW ONE Stop: 08/06/24 05:10 Last Admin: 08/06/24 05:14 Dose: 20 mg Documented By: NATTY Magnesium Sulfate (Magnesium Sulfate) 2 gm in 50 mls @ 150 mls/hr IV NOW ONE Stop: 08/06/24 05:24 Last Infusion: 08/06/24 05:43 Dose: Infused Documented By: NATTY Co-signed By: JAMSHID Admin: 08/06/24 05:22 Dose: 150 mls/hr Documented By: NATTY Co-signed By: JAMSHID Ceftriaxone Sodium 1,000 mg/ (Sodium Chloride) 100 mls @ 200 mls/hr IV NOW ONE Stop: 08/06/24 05:31 Last Infusion: 08/06/24 06:10 Dose: Infused Documented By: Admin: 08/06/24 05:37 Dose: 200 mls/hr Documented By: NATTY Doxycycline Hyclate 100 mg/ (Sodium Chloride) 100 mls @ 100 mls/hr IV NOW ONE Stop: 08/06/24 05:31 Last Admin: 08/06/24 06:11 Dose: 100 mls/hr Documented By: NATTY Vital Signs Vital signs: Vital Signs - 8 hr 08/06/24 05:00 08/06/24 05:00 08/06/24 05:00 Temperature 97.6 F Pulse Rate 154 H 153 H Respiratory Rate 24 Blood Pressure 143/98 H 143/98 H Pulse Oximetry 94 Oxygen Delivery Method Room Air 08/06/24 05:14 08/06/24 05:18 08/06/24 05:18 Temperature Pulse Rate 160 H 157 H Respiratory Rate 21 Blood Pressure 143/98 H 119/83 Pulse Oximetry 97 Oxygen Delivery Method 08/06/24 05:24 08/06/24 05:24 08/06/24 05:25 Temperature Pulse Rate 136 H 127 H Respiratory Rate 19 20 Blood Pressure 100/57 L Pulse Oximetry 96 97 Oxygen Delivery Method 08/06/24 05:25 08/06/24 05:30 08/06/24 05:30 Temperature Pulse Rate 114 H Respiratory Rate 21 Blood Pressure 99/57 L 98/55 L Pulse Oximetry 96 Oxygen Delivery Method 08/06/24 05:35 08/06/24 05:35 08/06/24 05:37 Temperature Pulse Rate 112 H 133 H Respiratory Rate 19 28 H Blood Pressure 90/64 Pulse Oximetry 96 95 Oxygen Delivery Method 08/06/24 05:37 08/06/24 05:40 08/06/24 05:40 Temperature Pulse Rate 120 H Respiratory Rate 25 H Blood Pressure 95/69 101/66 Pulse Oximetry 95 Oxygen Delivery Method 08/06/24 05:45 08/06/24 05:45 08/06/24 05:50 Temperature Pulse Rate 152 H 98 H Respiratory Rate 19 20 Blood Pressure 93/64 Pulse Oximetry 96 96 Oxygen Delivery Method 08/06/24 05:50 08/06/24 05:55 08/06/24 05:55 Temperature Pulse Rate 97 H Respiratory Rate 19 Blood Pressure 94/59 L 89/63 L Pulse Oximetry 94 Oxygen Delivery Method 08/06/24 06:00 08/06/24 06:00 08/06/24 06:05 Temperature Pulse Rate 108 H 131 H Respiratory Rate 22 27 H Blood Pressure 101/70 Pulse Oximetry 95 95 Oxygen Delivery Method 08/06/24 06:05 08/06/24 06:10 08/06/24 06:10 Temperature Pulse Rate 152 H Respiratory Rate 21 Blood Pressure 100/64 112/65 Pulse Oximetry 95 Oxygen Delivery Method 08/06/24 06:15 08/06/24 06:15 08/06/24 06:20 Temperature Pulse Rate 109 H Respiratory Rate Blood Pressure 127/66 100/58 L Pulse Oximetry 96 Oxygen Delivery Method 08/06/24 06:20 08/06/24 06:25 08/06/24 06:25 Temperature Pulse Rate 114 H 152 H Respiratory Rate 22 20 Blood Pressure 108/66 Pulse Oximetry 96 95 Oxygen Delivery Method 08/06/24 06:30 08/06/24 06:30 08/06/24 06:35 Temperature Pulse Rate 107 H Respiratory Rate 19 Blood Pressure 96/67 104/68 Pulse Oximetry 95 Oxygen Delivery Method 08/06/24 06:35 Temperature Pulse Rate 152 H Respiratory Rate 20 Blood Pressure Pulse Oximetry 96 Oxygen Delivery Method MDM - Arrhythmia/Palpitations <Harsh De La Rosa DO - Last Filed: 08/06/24 06:10> Differential Diagnosis Differential diagnosis: Likely palpitations, artial fibrillation, artial flutter, supraventricular tachycardia, ventricular tachycardia and other (Electrolyte abnormality, pneumonia,) Lab Data 08/06/24 05:10 08/06/24 05:10 Labs: Lab Results 08/06/24 Range/Units 05:10 WBC 8.7 (4.5-11.0) X10^3/uL RBC 4.38 L (4.5-5.9) X10^6/uL Hgb 14.2 (13.5-17.5) g/dL Hct 40.3 L (41-53) % MCV 92.1 (80-100) fL MCH 32.5 (26-34) PG MCHC 35.2 (30-36) % RDW 13.7 (11.6-14.8) % Plt Count 206 (150-400) X10^3/uL Neut % (Auto) 70.9 (50-75) % Lymph % (Auto) 16.8 L (25-40) % [place] % (Auto) 11.6 (3-14) % Eos % (Auto) 0.3 L (2-4) % Baso % (Auto) 0.4 (0-2) % Neut # (Auto) 6200 (6663-4016) /uL Lymph # (Auto) 1500 (5033-0908) /uL [place] # (Auto) 1000 H (0-900) /uL Eos # (Auto) 0 (0-450) /uL Baso # (Auto) 0 (0-100) /uL Sodium 132 L (137-145) mmol/L Potassium 3.6 (3.4-5.1) mmol/L Chloride 99 (98-107) mmol/L Carbon Dioxide 26 (22-32) mmol/L BUN 20 (9-20) mg/dL Creatinine 1.00 (0.66-1.25) mg/dL Estimated GFR > 60 (>60) mL/min BUN/Creatinine Ratio 20.0 (6-22) Glucose 109 H (70-99) mg/dL Calcium 9.0 (8.4-10.2) mg/dL Magnesium 2.0 (1.6-2.3) mg/dL Total Bilirubin 1.4 H (0.2-1.3) mg/dL AST 35 (17-59) IU/L ALT 33 (<50) IU/L Alkaline Phosphatase 65 (38-126) U/L Total Creatine Kinase 47 L (55-170) U/L Troponin I 0.148 H* (0.01-0.034) ng/mL Total Protein 6.8 (6.3-8.2) g/dL Albumin 4.1 (3.5-5.0) g/dL Globulin 2.7 (1.7-4.1) g/dL Albumin/Globulin Ratio 1.5 (1.0-2.8) Lipase 40 (23-300) U/L Imaging Data Chest x-ray: Radiologist's Impresson: Preliminary read showing left upper lobe opacity reflecting possible infection ECG Data Interpretation: EKG interpreted ED physician atrial fibrillation at 153 beats per minute QTC [address] changes no STEMI MDM Narrative Medical decision making narrative: 78-year-old male with a history of AFib on Eliquis metoprolol presenting for palpitations. He was found to be in rapid AFib at 153 upon initial arrival, however stable with normotensive blood pressure. Patient only complaining of palpitations started around 1:00 a.m.. States he did take an additional dose of his metoprolol but did not control his symptoms therefore decided come into the ED for further evaluation treatment. He states that he was Patient follows with Dr. Brown of cardiology. Patient had a previous echo on 07/15/2024 that showed The ejection fraction is estimated to be 60-65%. Chest x-ray showing left upper lobe opacity we will treat for pneumonia, to note patient states that he was feeling ?crummy with the past few days. Patient did receive 2 g magnesium, 20 mg IV Cardizem. Rocephin doxy ordered for the pneumonia Patient's lab work without any leukocytosis, initial troponin 0.148 we will obtain repeat, most likely type 2 spilled given patient currently with pneumonia, patient is already anticoagulated on Eliquis will reach out to Cardiology for further recommendations. 0558: Discussed case with automotive collision estimator Dr. Collazo of Cardiology, he states that given the fact that patient with pneumonia would recommend admission for resolution of pneumonia with IV antibiotics as well as rate control. Would recommend amiodarone if patient does not remain rate controlled. States no need for transfer at this time. 0600: Discussed case with hospitalist Dr. Benavidez, is requesting patient be on Cardizem drip for about 1 hour given the fact that patient is intermittently popping back into AFib. Cardizem drip ordered. <Bean Montgomery MD - Last Filed: 08/06/24 07:45> Lab Data Labs: Lab Results 08/06/24 Range/Units 05:10 WBC 8.7 (4.5-11.0) X10^3/uL RBC 4.38 L (4.5-5.9) X10^6/uL Hgb 14.2 (13.5-17.5) g/dL Hct 40.3 L (41-53) % MCV 92.1 (80-100) fL MCH 32.5 (26-34) PG MCHC 35.2 (30-36) % RDW 13.7 (11.6-14.8) % Plt Count 206 (150-400) X10^3/uL Neut % (Auto) 70.9 (50-75) % Lymph % (Auto) 16.8 L (25-40) % [place] % (Auto) 11.6 (3-14) % Eos % (Auto) 0.3 L (2-4) % Baso % (Auto) 0.4 (0-2) % Neut # (Auto) 6200 (1750-4056) /uL Lymph # (Auto) 1500 (1884-9067) /uL [place] # (Auto) 1000 H (0-900) /uL Eos # (Auto) 0 (0-450) /uL Baso # (Auto) 0 (0-100) /uL Sodium 132 L (137-145) mmol/L Potassium 3.6 (3.4-5.1) mmol/L Chloride 99 (98-107) mmol/L Carbon Dioxide 26 (22-32) mmol/L BUN 20 (9-20) mg/dL Creatinine 1.00 (0.66-1.25) mg/dL Estimated GFR > 60 (>60) mL/min BUN/Creatinine Ratio 20.0 (6-22) Glucose 109 H (70-99) mg/dL Calcium 9.0 (8.4-10.2) mg/dL Magnesium 2.0 (1.6-2.3) mg/dL Total Bilirubin 1.4 H (0.2-1.3) mg/dL AST 35 (17-59) IU/L ALT 33 (<50) IU/L Alkaline Phosphatase 65 (38-126) U/L Total Creatine Kinase 47 L (55-170) U/L Troponin I 0.148 H* (0.01-0.034) ng/mL Total Protein 6.8 (6.3-8.2) g/dL Albumin 4.1 (3.5-5.0) g/dL Globulin 2.7 (1.7-4.1) g/dL Albumin/Globulin Ratio 1.5 (1.0-2.8) Lipase 40 (23-300) U/L MDM Narrative Medical decision making narrative: 78-year-old male with a history of AFib on Eliquis metoprolol presenting for palpitations. He was found to be in rapid AFib at 153 upon initial arrival, however stable with normotensive blood pressure. Patient only complaining of palpitations started around 1:00 a.m.. States he did take an additional dose of his metoprolol but did not control his symptoms therefore decided come into the ED for further evaluation treatment. He states that he was Patient follows with Dr. Brown of cardiology. Patient had a previous echo on 07/15/2024 that showed The ejection fraction is estimated to be 60-65%. Chest x-ray showing left upper lobe opacity we will treat for pneumonia, to note patient states that he was feeling ?crummy with the past few days. Patient did receive 2 g magnesium, 20 mg IV Cardizem. Rocephin doxy ordered for the pneumonia Patient's lab work without any leukocytosis, initial troponin 0.148 we will obtain repeat, most likely type 2 spilled given patient currently with pneumonia, patient is already anticoagulated on Eliquis will reach out to Cardiology for further recommendations. 0558: Discussed case with automotive collision estimator Dr. Collazo of Cardiology, he states that given the fact that patient with pneumonia would recommend admission for resolution of pneumonia with IV antibiotics as well as rate control. Would recommend amiodarone if patient does not remain rate controlled. States no need for transfer at this time. 0600: Discussed case with hospitalist Dr. Benavidez, is requesting patient be on Cardizem drip for about 1 hour given the fact that patient is intermittently popping back into AFib. Cardizem drip ordered. I assumed care of patient at approximately 7:00 a.m., fortunately he converted to sinus rhythm after being on a diltiazem drip for approximately 1 hour and 30 minutes, requested hospital admission for his pneumonia, bump in troponin and frequent bouts of AFib RVR while in the emergency department.-Bean Montgomery Discharge Plan Departure Patient Disposition: Admitted as Observation Clinical Impression: Atrial fibrillation with rapid ventricular response, Pneumonia Prescriptions: No Action abiraterone 250 mg tablet 750 mg PO DAILY Qty: 360 3RF Rx Instructions: must be taken on empty stomach, at least 1 hr before or 2 hrs after a meal/food fluticasone propionate 50 mcg/actuation spray,suspension 2 spray intranasal DAILY Qty: 16 11RF Rx Instructions: administer into each nostril tamsulosin 0.4 mg capsule 0.8 mg PO BEDTIME Qty: 180 3RF apixaban 5 mg tablet 5 mg PO BID 30 Days Qty: 180 3RF Prolia 60 mg/mL syringe 60 mg SUBCUT [id number] albuterol sulfate 90 mcg/actuation HFA aerosol inhaler 2 puff inhalation Q4-6H PRN (Reason: shortness of breath or wheezing) Qty: 6.7 11RF Zyrtec 10 mg capsule 10 mg PO DAILY PRN (Reason: Allergy Symptoms) calcium 500 mg Tablet 500 mg DAILY methylprednisolone 4 mg tablet 4 mg PO BID Qty: 180 3RF Eligard (3 month) 22.5 mg syringe 22.5 mg SUBCUT [id number] famotidine [Zantac-360 (famotidine)] 20 mg tablet 20 mg PO DAILY vitamin D3-vitamin K2 125-90 mcg capsule 125 cap PO DAILY zinc sulfate 50 mg zinc (220 mg) tablet 50 mg PO DAILY Lactobacillus acidophilus [Probiotic Acidophilus] 1 tab PO DAILY ascorbate calcium (vitamin C) 500 mg tablet 500 mg PO DAILY metoprolol succinate 25 mg tablet extended release 24 hr 25 mg PO DAILY sildenafil 50 mg tablet 50 mg PO DAILY PRN (Reason: sexual activity) Qty: 10 0RF Rx Instructions: administer 30 minutes to 4 hours before activity Referrals: Tami Rodríguez DO [Primary Care Provider] -
--- NOTE | 2024-08-06 05:05 | DI.RAD.S_ITS ---
PROCEDURE: XR CHEST 1V INDICATIONS: palpitations TECHNIQUE: One view of the chest was acquired. COMPARISON: [facility], CT, CT CHEST ABD PEL W CON, 08/18/2022, 11:38. [facility], RG, CT PET SKULL BASE TO MID THIGH, 10/10/2022, 15:00. [facility], CR, XR CHEST 2V, 03/13/2023, 15:29. FINDINGS: Surgical changes and devices: None. Lungs and pleura: Patchy atelectasis versus scarring along the left heart border. Otherwise clear. No pleural effusions or pneumothorax. Mediastinum: Mediastinal contours appear normal. Heart size is normal. Bones and chest wall: No suspicious bony lesions. Overlying soft tissues appear unremarkable. IMPRESSION: Patchy atelectasis versus scarring along the left heart border. Comment: Final report is concordant with preliminary interpretation provided by [facility]. Dictated by: Victor Hugo Dyson M.D. on 08/06/2024 at 8:19 Approved by: Victor Hugo Dyson M.D. on 08/06/2024 at 8:20
[2024-08-06] MEDS: dilTIAZem 25 MG/5 ML SDV 20 MG IV (05:14)
[2024-08-06] MEDS: SODIUM CHLORIDE 0.9% 1,000 ML 150 ML IV (05:14)
[2024-08-06 05:21] LABS: Add Manual Diff / Slide Review NO; Basophils Absolute Auto 0 /uL (0-100); Basophils Percent Auto 0.4 % (0-2); Eosinophils Absolute Auto 0 /uL (0-450); Eosinophils Percent Auto 0.3 % (2-4); Hematocrit 40.3 % (41-53); Hemoglobin 14.2 g/dL (13.5-17.5); Lymphocytes Absolute Auto 1500 /uL (1100-4500); Lymphocytes Percent Auto 16.8 % (25-40); Mean Corpuscular HGB Conc 35.2 % (30-36); Mean Corpuscular Hemoglobin 32.5 PG (26-34); Mean Corpuscular Volume 92.1 fL (80-100); Monocytes Absolute Auto 1000 /uL (0-900); Monocytes Percent Auto 11.6 % (3-14); Neutrophils Absolute Auto 6200 /uL (1500-7000); Neutrophils Percent Auto 70.9 % (50-75); Platelet Count 206 X10^3/uL (150-400); Red Blood Cell Count 4.38 X10^6/uL (4.5-5.9); Red Cell Distribution Width 13.7 % (11.6-14.8); White Blood Cell Count 8.7 X10^3/uL (4.5-11.0)
[2024-08-06] MEDS: MAGNESIUM SULFATE 2 GM/50 ML PIGGYBACK IV (05:22)
[2024-08-06 05:34] LABS: Alanine Aminotransferase 33 IU/L (<50); Albumin 4.1 g/dL (3.5-5.0); Albumin Globulin Ratio 1.5 (1.0-2.8); Alkaline Phosphatase 65 U/L (38-126); Aspartate Aminotransferase 35 IU/L (17-59); Bilirubin Total 1.4 mg/dL (0.2-1.3); Blood Urea Nitrogen 20 mg/dL (9-20); Carbon Dioxide 26 mmol/L (22-32); Chloride 99 mmol/L (98-107); Creatine Kinase 47 U/L (55-170); Estimated Glomerular Filt Rate > 60 mL/min (>60); Globulin 2.7 g/dL (1.7-4.1); Glucose 109 mg/dL (70-99); HEMOLYSIS < 15 (0-50); Lipase 40 U/L (23-300); Potassium 3.6 mmol/L (3.4-5.1); Sodium 132 mmol/L (137-145); Total Protein 6.8 g/dL (6.3-8.2)
[2024-08-06] MEDS: cefTRIAXone 1,000 MG in SODIUM CHLORIDE 0.9% 100 ML 200 MG IV (05:37)
[2024-08-06 05:50] LABS: Troponin I 0.148 ng/mL (0.01-0.034)
[2024-08-06] MEDS: DOXYCYCLINE 100 MG in SODIUM CHLORIDE 0.9% 100 ML IV (06:11)
[2024-08-06] MEDS: dilTIAZem 125 MG in SODIUM CHLORIDE 0.9% 100 ML IV (06:29)
--- NOTE | 2024-08-06 07:12 | PC.NURSE ---
Pt converted to SR. Dilt drip paused. Dr Harrell aware.
[2024-08-06 07:48] LABS: Troponin I 0.186 ng/mL (0.01-0.034)
--- NOTE | 2024-08-06 08:46 | P.HP_ITS ---
History of Present Illness History of Present Illness Chief complaint: afib for 1 hour Narrative: The patient is a 78-year-old male with history of paroxysmal AFib on chronic Eliquis and metoprolol. He developed acute palpitations and dizziness last night. He took a metoprolol which failed to improve his rate. He monitors his rate with his Apple watch. He denies any chest pain. He does note that he was ill for about 4 days before this with intermittent fevers, and chills. She denies prominent cough, or dyspnea. No leg edema. In the emergency department he was given rate control medications and did improve. Specifically he was given IV diltiazem and oral diltiazem. Chest x-ray was suggestive of an infiltrate, and he was given IV antibiotics for possible pneumonia. He had elevated troponins. He was followed by [facility]. He was no known history of CAD, and did have a Zio patch on recently which was fairly unremarkable. 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 Prostate cancer Right hydrocele Nodular prostate with urinary obstruction Elevated PSA Elevated blood pressure reading without diagnosis of hypertension Medicare annual wellness visit, subsequent BPH (benign prostatic hyperplasia) Subclinical hypothyroidism Thumb pain Arthritis Sinus drainage Right inguinal hernia Surgical History Anesthesia History of hernia repair (~02/2019) Status post Mohs surgery (~2016) Hx of eye surgery (~1953) Hx of bilateral cataract extraction (~2007) Family History Brother CAD (coronary artery disease) Diabetes mellitus Hyperlipidemia Hypertension Sister Diabetes mellitus Hyperlipidemia Hypertension Social History marital status: number of children: 1 household members: spouse Smoking Status: Never smoker alcohol intake: current substance use type: marijuana (cannibus occ) caffeine: Yes Type(s) of exercise: bicycling frequency: 3-4 times per week duration: > 90 minutes/day Meds Home Medications and Allergies Home Medications Medication Instructions Recorded Confirmed Type cetirizine 10 mg capsule (Zyrtec) 10 mg PO DAILY PRN Allergy Symptoms 05/04/22 08/06/24 History Lactobacillus acidophilus 1 tab PO DAILY 07/19/22 08/06/24 History [Probiotic Acidophilus] ascorbate calcium (vitamin C) 500 500 mg PO DAILY 07/19/22 08/06/24 History mg tablet famotidine 20 mg tablet 20 mg PO DAILY 07/19/22 08/06/24 History (Zantac-360 (famotidine)) vitamin D3 125 mcg (5,000 125 cap PO DAILY 07/19/22 08/06/24 History unit)-vitamin K2 90 mcg capsule zinc sulfate 50 mg zinc (220 mg) 50 mg PO DAILY 07/19/22 08/06/24 History tablet calcium 500 mg tablet 500 mg DAILY 10/19/22 08/06/24 History metoprolol succinate 25 mg 25 mg PO DAILY 11/09/22 08/06/24 History tablet,extended release 24 hr apixaban 5 mg tablet 5 mg PO BID 30 days #180 tabs 06/22/23 08/06/24 Rx denosumab 60 mg/mL subcutaneous 60 mg SUBCUT [id number] 06/22/23 08/06/24 History syringe (Prolia) methylprednisolone 4 mg tablet 4 mg PO BID #180 tabs 09/12/23 08/06/24 Rx sildenafil 50 mg tablet 50 mg PO DAILY PRN sexual activity 03/14/24 08/06/24 Rx #10 tabs abiraterone 250 mg tablet 750 mg (3 x 250 mg) PO DAILY #360 03/27/24 08/06/24 Rx tabs leuprolide (3 month) 22.5 mg (3 22.5 mg SUBCUT [id number] 06/10/24 08/06/24 History month) subcutaneous syringe ([employer]) fluticasone propionate 50 2 spray intranasal DAILY #16 grams 07/02/24 08/06/24 Rx mcg/actuation nasal spray,suspension albuterol sulfate 90 mcg/actuation 2 puff inhalation Q4-6H PRN 07/04/24 08/06/24 Rx aerosol inhaler shortness of breath or wheezing #6.7 grams tamsulosin 0.4 mg capsule 0.8 mg (2 x 0.4 mg) PO BEDTIME 07/24/24 08/06/24 Rx #180 caps Allergies Allergy/AdvReac Type Severity Reaction Status Date / Time No Known Drug Allergies Allergy Verified 07/04/24 11:36 Review of Systems Review of Systems Narrative: All else reviewed and otherwise unremarkable except as noted in the history and physical. Exam Vital Signs (past 8 hours): - 08/06/24 05:00 08/06/24 05:00 08/06/24 05:00 Temperature 97.6 F Pulse Rate 154 H 153 H Respiratory Rate 24 Blood Pressure 143/98 H 143/98 H Pulse Oximetry 94 Oxygen Delivery Method Room Air 08/06/24 05:14 08/06/24 05:18 08/06/24 05:18 Temperature Pulse Rate 160 H 157 H Respiratory Rate 21 Blood Pressure 143/98 H 119/83 Pulse Oximetry 97 Oxygen Delivery Method 08/06/24 05:24 08/06/24 05:24 08/06/24 05:25 Temperature Pulse Rate 136 H 127 H Respiratory Rate 19 20 Blood Pressure 100/57 L Pulse Oximetry 96 97 Oxygen Delivery Method 08/06/24 05:25 08/06/24 05:30 08/06/24 05:30 Temperature Pulse Rate 114 H Respiratory Rate 21 Blood Pressure 99/57 L 98/55 L Pulse Oximetry 96 Oxygen Delivery Method 08/06/24 05:35 08/06/24 05:35 08/06/24 05:37 Temperature Pulse Rate 112 H 133 H Respiratory Rate 19 28 H Blood Pressure 90/64 Pulse Oximetry 96 95 Oxygen Delivery Method 08/06/24 05:37 08/06/24 05:40 08/06/24 05:40 Temperature Pulse Rate 120 H Respiratory Rate 25 H Blood Pressure 95/69 101/66 Pulse Oximetry 95 Oxygen Delivery Method 08/06/24 05:45 08/06/24 05:45 08/06/24 05:50 Temperature Pulse Rate 152 H 98 H Respiratory Rate 19 20 Blood Pressure 93/64 Pulse Oximetry 96 96 Oxygen Delivery Method 08/06/24 05:50 08/06/24 05:55 08/06/24 05:55 Temperature Pulse Rate 97 H Respiratory Rate 19 Blood Pressure 94/59 L 89/63 L Pulse Oximetry 94 Oxygen Delivery Method 08/06/24 06:00 08/06/24 06:00 08/06/24 06:05 Temperature Pulse Rate 108 H 131 H Respiratory Rate 22 27 H Blood Pressure 101/70 Pulse Oximetry 95 95 Oxygen Delivery Method 08/06/24 06:05 08/06/24 06:10 08/06/24 06:10 Temperature Pulse Rate 152 H Respiratory Rate 21 Blood Pressure 100/64 112/65 Pulse Oximetry 95 Oxygen Delivery Method 08/06/24 06:15 08/06/24 06:15 08/06/24 06:20 Temperature Pulse Rate 109 H Respiratory Rate Blood Pressure 127/66 100/58 L Pulse Oximetry 96 Oxygen Delivery Method 08/06/24 06:20 08/06/24 06:25 08/06/24 06:25 Temperature Pulse Rate 114 H 152 H Respiratory Rate 22 20 Blood Pressure 108/66 Pulse Oximetry 96 95 Oxygen Delivery Method 08/06/24 06:30 08/06/24 06:30 08/06/24 06:35 Temperature Pulse Rate 107 H Respiratory Rate 19 Blood Pressure 96/67 104/68 Pulse Oximetry 95 Oxygen Delivery Method 08/06/24 06:35 08/06/24 06:40 08/06/24 06:40 Temperature Pulse Rate 152 H 122 H Respiratory Rate 20 17 Blood Pressure 105/59 L Pulse Oximetry 96 95 Oxygen Delivery Method 08/06/24 06:45 08/06/24 06:45 08/06/24 06:50 Temperature Pulse Rate 106 H 111 H Respiratory Rate 17 18 Blood Pressure 113/73 Pulse Oximetry 94 95 Oxygen Delivery Method 08/06/24 06:50 08/06/24 06:55 08/06/24 06:55 Temperature Pulse Rate 111 H Respiratory Rate 17 Blood Pressure 97/65 97/60 Pulse Oximetry 93 Oxygen Delivery Method 08/06/24 07:00 08/06/24 07:00 08/06/24 07:05 Temperature Pulse Rate 57 L Respiratory Rate 21 Blood Pressure 86/58 L 119/67 Pulse Oximetry 96 Oxygen Delivery Method 08/06/24 07:05 08/06/24 07:15 08/06/24 07:15 Temperature Pulse Rate 63 66 Respiratory Rate 19 18 Blood Pressure 119/63 Pulse Oximetry 96 96 Oxygen Delivery Method 08/06/24 07:30 08/06/24 07:30 08/06/24 07:45 Temperature Pulse Rate 65 67 Respiratory Rate 19 Blood Pressure 121/68 Pulse Oximetry 96 96 Oxygen Delivery Method 08/06/24 07:45 08/06/24 08:00 08/06/24 08:00 Temperature Pulse Rate 68 Respiratory Rate 23 Blood Pressure 125/66 124/68 Pulse Oximetry 97 Oxygen Delivery Method 08/06/24 08:15 08/06/24 08:15 08/06/24 08:29 Temperature Pulse Rate 70 69 Respiratory Rate 20 Blood Pressure 131/70 Pulse Oximetry 97 97 Oxygen Delivery Method Room Air 08/06/24 08:30 Temperature Pulse Rate Respiratory Rate Blood Pressure 121/73 Pulse Oximetry Oxygen Delivery Method Oxygen Delivery Method Room Air Narrative Exam Narrative: NAD, alert and oriented, fluent speech, calm. Normocephalic skull, EOMI, anicteric sclera, symmetric pupils. Oropharynx unremarkable, no droop. Neck supple, midline trachea, no adenopathy. Lungs clear, normal rate and effort. Heart regular, no murmur gallop or rub. Abdomen is soft, non distended and non tender. Extremities are free of edema. Skin is free of rash or lesions. Joints are not swollen or deformed. Judgment appears to be normal. Objective Labs 08/06/24 05:10 08/06/24 05:10 Labs: Laboratory Results - last 24 hr 08/06/24 08/06/24 05:10 07:13 WBC 8.7 RBC 4.38 L Hgb 14.2 Hct 40.3 L MCV 92.1 MCH 32.5 MCHC 35.2 RDW 13.7 Plt Count 206 Neut % (Auto) 70.9 Lymph % (Auto) 16.8 L [place] % (Auto) 11.6 Eos % (Auto) 0.3 L Baso % (Auto) 0.4 Neut # (Auto) 6200 Lymph # (Auto) 1500 [place] # (Auto) 1000 H Eos # (Auto) 0 Baso # (Auto) 0 Sodium 132 L Potassium 3.6 Chloride 99 Carbon Dioxide 26 BUN 20 Creatinine 1.00 Estimated GFR > 60 BUN/Creatinine Ratio 20.0 Glucose 109 H Calcium 9.0 Magnesium 2.0 Total Bilirubin 1.4 H AST 35 ALT 33 Alkaline Phosphatase 65 Total Creatine Kinase 47 L Troponin I 0.148 H* 0.186 H* Total Protein 6.8 Albumin 4.1 Globulin 2.7 Albumin/Globulin Ratio 1.5 Lipase 40 Assessment & Plan Assessment & Plan narrative: 1. Atrial fibrillation with rapid response, present on admission and improved. 2. Paroxysmal atrial fibrillation, present on admission and active. 3. Left upper lobe pneumonia, present on admission and active. 4. Demand ischemia, present on admission and active. 5. Prostate cancer, metastatic. Present on admission and stable. PLAN: -continue IV antibiotics for pneumonia, follow up blood cultures. -continue usual medications, add diltiazem 30 mg q.6 and convert to 120 q.day tomorrow. -trend troponins, and discuss with primary office helper clerical between known discharge. He was full resuscitation. Anticipate 1 midnight in the hospital, supports observation status. Time-Based Coding :: 35 spent with patient and on the chart (including review of chart, obtaining history, exam, reviewing outside data, placing orders, documenting exam and treatment plan, and counseling patient) on 08/06. Quality MIPS - Admit I confirm the patient?s Advance Care Plan is present, Code status is documented, Surrogate decision maker is in patient?s record [If Yes, STOP here]: Yes MIPS - Meds 'Current medications' to include all prescriptions, [id number] products, herbals, cannabis/cannabidiol products, and vitamin/mineral/dietary (nutritional) supplements. I have utilized all available resources to obtain, update, or review the patient?s current medications. [If Yes, STOP here]: Yes
[2024-08-06] MEDS: METOPROLOL ER 25 MG TABLET PO ×2 (12:13→21:54)
[2024-08-06] MEDS: APIXABAN 5 MG TABLET PO ×2 (12:13→21:52)
[2024-08-06] MEDS: methylPREDNISolone 4 MG TABLET PO ×2 (12:14→21:52)
[2024-08-06] MEDS: FAMOTIDINE 20 MG TABLET PO (12:14)
[2024-08-06 12:34] LABS: Troponin I 0.195 ng/mL (0.01-0.034)
[2024-08-06 21:36] LABS: Troponin I 0.129 ng/mL (0.01-0.034)
[2024-08-07] VITALS: BP 156/91; PULSE 79; RESP 17; TEMP 35.7; O2SAT 95
[2024-08-07] MEDS: TAMSULOSIN 0.4 MG CAPSULE 0.8 MG PO (00:07)
[2024-08-07] MEDS: ABIRATERONE 250 MG 750 EACH PO (00:08)
[2024-08-07 04:00] VITALS: BP 158/93; PULSE 66; RESP 17; TEMP 36.2; O2SAT 97
[2024-08-07 06:09] LABS: Add Manual Diff / Slide Review NO; Basophils Absolute Auto 0 /uL (0-100); Basophils Percent Auto 0.3 % (0-2); Eosinophils Absolute Auto 0 /uL (0-450); Eosinophils Percent Auto 0.5 % (2-4); Hematocrit 36.3 % (41-53); Hemoglobin 12.5 g/dL (13.5-17.5); Lymphocytes Absolute Auto 900 /uL (1100-4500); Lymphocytes Percent Auto 12.8 % (25-40); Mean Corpuscular HGB Conc 34.5 % (30-36); Mean Corpuscular Volume 92.6 fL (80-100); Monocytes Absolute Auto 700 /uL (0-900); Monocytes Percent Auto 9.4 % (3-14); Neutrophils Absolute Auto 5400 /uL (1500-7000); Platelet Count 170 X10^3/uL (150-400); Red Blood Cell Count 3.92 X10^6/uL (4.5-5.9); Red Cell Distribution Width 13.9 % (11.6-14.8)
[2024-08-07 06:21] LABS: BUN Creatinine Ratio 23.2 (6-22); Blood Urea Nitrogen 19 mg/dL (9-20); Carbon Dioxide 27 mmol/L (22-32); Chloride 100 mmol/L (98-107); Estimated Glomerular Filt Rate > 60 mL/min (>60); Glucose 110 mg/dL (70-99); HEMOLYSIS < 15 (0-50); Potassium 4.1 mmol/L (3.4-5.1); Sodium 131 mmol/L (137-145)
[2024-08-07 08:00] VITALS: BP 141/88; PULSE 69; RESP 18; TEMP 36.4; O2SAT 99
[2024-08-07] MEDS: AZITHROMYCIN 500 MG in DEXTROSE 5% IN WATER 250 ML 250 MG IV (09:28)
[2024-08-07] MEDS: APIXABAN 5 MG TABLET PO (09:28)
[2024-08-07] MEDS: methylPREDNISolone 4 MG TABLET PO (09:28)
[2024-08-07] MEDS: FAMOTIDINE 20 MG TABLET PO (09:28)
[2024-08-07] MEDS: cefTRIAXone 1,000 MG in SODIUM CHLORIDE 0.9% 100 ML 200 MG IV (09:48)
[2024-08-07] MEDS: FLUTICASONE 120 SPRAY/16 GM SPRAY.SUSP NASAL (09:50)
--- NOTE | 2024-08-07 11:12 | PM.DS.1 ---
History of Present Illness History of Present Illness Chief complaint: afib for 1 hour Narrative: The patient is a 78-year-old male with history of paroxysmal AFib on chronic Eliquis and metoprolol. He developed acute palpitations and dizziness last night. He took a metoprolol which failed to improve his rate. He monitors his rate with his Apple watch. He denies any chest pain. He does note that he was ill for about 4 days before this with intermittent fevers, and chills. She denies prominent cough, or dyspnea. No leg edema. In the emergency department he was given rate control medications and did improve. Specifically he was given IV diltiazem and oral diltiazem. Chest x-ray was suggestive of an infiltrate, and he was given IV antibiotics for possible pneumonia. He had elevated troponins. He was followed by [facility]. He was no known history of CAD, and did have a Zio patch on recently which was fairly unremarkable. Discharge Providers Provider Date of admission: 08/06/24 07:48 Discharge Date: 08/07/24 Primary care physician: Tami Rodríguez DO Consults: None. Discharge provider: Param Cerna MD Summary Hospital Course Discharge Diagnosis: 1. Atrial fibrillation with rapid response, present on admission and improved. 2. Paroxysmal atrial fibrillation, present on admission and active. 3. Left upper lobe pneumonia, present on admission and active. 4. Demand ischemia, present on admission and improved. 5. Prostate cancer, metastatic. Present on admission and stable. Hospital Course: He was admitted for possible pneumonia and treated with IV antibiotics. He would mild demand ischemia after his atrial fibrillation with rapid response. He remained rate controlled. He was had adjustments of medications recently due to low blood pressure. He was felt to be stable for discharge with good heart rate control on his chronic medications and his events were transmitted to his clinical exercise physiologist, Dr. Bettencourt. Status at Discharge Cognitive/behavioral status at discharge: oriented Functional status at discharge: independent ambulation Overall status at discharge: patient is back to baseline Time Spent with Patient Time spent: Greater than 30 minutes Exam Vital Signs (past 8 hours): - 08/07/24 04:00 Temperature 97.1 F L Pulse Rate 66 Respiratory Rate 17 Blood Pressure 158/93 H Pulse Oximetry 97 Oxygen Flow Rate 0 Oxygen Delivery Method Room Air Oxygen Flow Rate 0 Narrative Exam Narrative: NAD, alert and oriented. Fluent speech. Lungs are clear, normal rate and effort. Heart is irregular, no murmur gallop or rub. Abdomen is soft, non distended. Extremities are free of edema. Objective ECG Impression: Intervals [place] Rate: 153 P: IN: QRS: 32 QRSD: 62 T: 66 QT: 274 QTc: 437 Interpretive Statements Critical Test Result: High HR Atrial fibrillation with rapid ventricular response Nonspecific ST abnormality Imaging Chest x-ray: My impression: No acute infiltrates to my read. Radiologist's impression: Patchy atelectasis versus scarring along the left heart border. Echo: Radiologist's impression: 07/15/2024: The ejection fraction is estimated to be 60-65%. Diastolic parameters suggest probable normal left ventricular diastolic function and normal filling pressures. The right ventricle is normal in size and function. No valvular abnormalities. Pulmonary artery pressures cannot be estimated because of the lack of a measurable TR jet velocity but the IVC suggests a CVP of around 3 mmHg. No change compared to prior study 08/15/2022. Labs 08/07/24 05:33 08/07/24 05:33 Labs: Laboratory Results - last 24 hr 08/06/24 08/06/24 08/07/24 11:50 20:51 05:33 WBC 7.0 RBC 3.92 L Hgb 12.5 L Hct 36.3 L MCV 92.6 MCH 32.0 MCHC 34.5 RDW 13.9 Plt Count 170 Neut % (Auto) 77.0 H Lymph % (Auto) 12.8 L [place] % (Auto) 9.4 Eos % (Auto) 0.5 L Baso % (Auto) 0.3 Neut # (Auto) 5400 Lymph # (Auto) 900 L [place] # (Auto) 700 Eos # (Auto) 0 Baso # (Auto) 0 Sodium 131 L Potassium 4.1 Chloride 100 Carbon Dioxide 27 BUN 19 Creatinine 0.82 Estimated GFR > 60 BUN/Creatinine Ratio 23.2 H Glucose 110 H Calcium 8.0 L Troponin I 0.195 H* 0.129 H* [facility] Medical History Chronic steroid use 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 Prostate cancer Right hydrocele Nodular prostate with urinary obstruction Elevated PSA Elevated blood pressure reading without diagnosis of hypertension Medicare annual wellness visit, subsequent BPH (benign prostatic hyperplasia) Subclinical hypothyroidism Thumb pain Arthritis Sinus drainage Right inguinal hernia Surgical History Anesthesia History of hernia repair (~02/2019) Status post Mohs surgery (~2016) Hx of eye surgery (~195) Hx of bilateral cataract extraction (~2007) Family History Brother CAD (coronary artery disease) Diabetes mellitus Hyperlipidemia Hypertension Sister Diabetes mellitus Hyperlipidemia Hypertension Social History marital status: number of children: 1 household members: spouse Smoking Status: Never smoker alcohol intake: current substance use type: marijuana (cannibus occ) caffeine: Yes Type(s) of exercise: bicycling frequency: 3-4 times per week duration: > 90 minutes/day Discharge Assessment & Plan Assessment and Plan Assessment: 1. Atrial fibrillation with rapid response, present on admission and improved. 2. Paroxysmal atrial fibrillation, present on admission and active. 3. Left upper lobe pneumonia, present on admission and active. 4. Demand ischemia, present on admission and improved. 5. Prostate cancer, metastatic. Present on admission and stable. Plan of Treatment: Stable for discharge home with 5 days of doxycycline 100 p.o. b.i.d. and close follow up with PCP, Dr. Rodríguez. Discharge Plan Discharge Plan Patient Disposition: Home Provider Discharge Comment: Stable for discharge home on oral antibiotics for pneumonia. Discharge orders & Medications Prescriptions: New doxycycline hyclate 100 mg capsule 100 mg PO BID Qty: 10 0RF Continued abiraterone 250 mg tablet 750 mg PO DAILY Qty: 360 3RF Rx Instructions: must be taken on empty stomach, at least 1 hr before or 2 hrs after a meal/food fluticasone propionate 50 mcg/actuation spray,suspension 2 spray intranasal DAILY Qty: 16 11RF Rx Instructions: administer into each nostril tamsulosin 0.4 mg capsule 0.8 mg PO BEDTIME Qty: 180 3RF apixaban 5 mg tablet 5 mg PO BID 30 Days Qty: 180 3RF Prolia 60 mg/mL syringe 60 mg SUBCUT [id number] albuterol sulfate 90 mcg/actuation HFA aerosol inhaler 2 puff inhalation Q4-6H PRN (Reason: shortness of breath or wheezing) Qty: 6.7 11RF Zyrtec 10 mg capsule 10 mg PO DAILY PRN (Reason: Allergy Symptoms) calcium 500 mg Tablet 500 mg DAILY methylprednisolone 4 mg tablet 4 mg PO BID Qty: 180 3RF Eligard (3 month) 22.5 mg syringe 22.5 mg SUBCUT [id number] famotidine [Zantac-360 (famotidine)] 20 mg tablet 20 mg PO DAILY vitamin D3-vitamin K2 125-90 mcg capsule 125 cap PO DAILY zinc sulfate 50 mg zinc (220 mg) tablet 50 mg PO DAILY Lactobacillus acidophilus [Probiotic Acidophilus] 1 tab PO DAILY ascorbate calcium (vitamin C) 500 mg tablet 500 mg PO DAILY metoprolol succinate 25 mg tablet extended release 24 hr 25 mg PO DAILY sildenafil 50 mg tablet 50 mg PO DAILY PRN (Reason: sexual activity) Qty: 10 0RF Rx Instructions: administer 30 minutes to 4 hours before activity Medication counseling provided by Pharmacist: No Follow up/Referrals: Tami Rodríguez DO [Primary Care Provider] - Discharge Health Status Multidrug resistant organism: No MDRO Diet/Activity/Treatments Diet: Regular Visit Report/Discharge Packet Instructions: DI for Pneumonia -- Adult Stand Alone Forms: Congestive Heart Failure, Patient Portal/API, Stroke Signs & Symptoms Discharge Data Primary Care Provider: Tami Rodríguez Attending Provider: Param Cerna Admit Date/Time: 08/06/24 07:48
[2024-08-07 12:00] VITALS: BP 150/83; PULSE 75; RESP 16; TEMP 36.6; O2SAT 98
--- NOTE | 2024-08-07 14:13 | CM.DANOTE ---
Initial DCP Assessment Note Pt is a 78 yo female, resident of [place], admitted OBS for management of afib and PNA. PCP: Tami Rodríguez Payer: MARIAN/Elisha bowling Torres Martinez Reviewed chart, pt discussed in multidisciplinary rounds this morning. Patient will be discharging home today. Patient is at his functional and cognitive baseline. No barriers identified at this time to patient's safe discharge home w/family to assist; close outpatient f/u recommended. CM team will plan to follow clinical course closely in case any DC needs or concerns arise. AVIS Perez Discharge Planning/Care Management CM Discharge Assessment Start: 08/07/24 14:07 Freq: Status: Active Protocol: Document 08/07/24 14:07 EDINSON (Rec: 08/07/24 14:13 EDINSON [id number]) Discharge Planning Assessment Assigned [employer] Worker AVIS [place] DPOA/Assigned Designee Name Marie Araya, spouse Contact Information [phone] Advance Directives? No History Provided By Patient,Medical Record Has Patient been admitted in last 30 No days? Prior Living Arrangements House Household Members spouse Type of transporation used prior to Drives own vehicle admit Independent with ADL's Yes Is patient alert and oriented? Yes Caregiver for Another No Barriers to Discharge No Discharge Plan Home Transportation Arrangement Family Referrals Initiated None needed
--- NOTE | 2024-08-14 11:06 | PC.NURSE ---
Late Entry Azithromycin 500mg ended at 1030 on 08/07/2024 Ceftriaxone 1G ended at 1015 on 08/07/2024
== END 2024-08-07 14:30 | disposition home or self-care (01) ==
LOC: ED 07:45 → AC 07:49
PROVIDERS: Student in an Organized Health Care Education/Training Program; Admitting Provider Hospitalist; Emergency Provider Emergency Medicine; PCP Family Medicine; Referring Provider Emergency Medicine; Visit Provider Hospitalist
DX: I48.0 Paroxysmal atrial fibrillation (principal); I24.89 Other forms of acute ischemic heart disease; J18.9 Pneumonia, unspecified organism; Z79.01 Long term (current) use of anticoagulants; C61 Malignant neoplasm of prostate
CPT/HCPCS: 36415; 71045; 80048; 80053; 82550; 83690; 83735; 84484; 85025; 93005; 93010; 96365; 96366; 96367; 96368; 96375; 99284; 99285; G0378; A9270; J0696; J3475

== ENCOUNTER → 2024-08-13 09:19 | Outpatient (ROUT) | payer MEDICARE, OTHER, SELFPAY ==
[2024-08-06 09:58] VITALS: BMI 25.0
== END ==
PROVIDERS: PCP Family Medicine; Visit Provider Family Medicine
DX: I48.91 Unspecified atrial fibrillation (principal); J18.9 Pneumonia, unspecified organism; Z79.52 Long term (current) use of systemic steroids
CPT/HCPCS: 36415; 80061; 83036; 84439; 84443; 85025

== ENCOUNTER → 2024-09-03 11:17 | Outpatient (CLI) | payer MEDICARE, OTHER, SELFPAY ==
[2024-08-06 09:58] VITALS: BMI 25.0
[2024-09-03 12:44] LABS: Prostate Specific Antigen < 0.064 ng/mL (0.10-4.00)
== END ==
PROVIDERS: PCP Family Medicine; Referring Provider Urology; Visit Provider Urology
DX: C61 Malignant neoplasm of prostate (principal); C78.00 Secondary malignant neoplasm of unspecified lung
CPT/HCPCS: 36415; 84153

== ENCOUNTER → 2024-10-10 08:57 | Outpatient (CLI) | payer MEDICARE, OTHER, SELFPAY ==
[2024-08-06 09:58] VITALS: BMI 25.0
[2024-10-10 09:52] LABS: Add Manual Diff / Slide Review NO; Basophils Absolute Auto 0 /uL (0-100); Basophils Percent Auto 0.2 % (0-2); Eosinophils Absolute Auto 0 /uL (0-450); Eosinophils Percent Auto 0.7 % (2-4); Hematocrit 39.1 % (41-53); Hemoglobin 13.7 g/dL (13.5-17.5); Lymphocytes Absolute Auto 1000 /uL (1100-4500); Lymphocytes Percent Auto 19.3 % (25-40); Mean Corpuscular HGB Conc 34.9 % (30-36); Mean Corpuscular Hemoglobin 32.7 PG (26-34); Mean Corpuscular Volume 93.6 fL (80-100); Monocytes Absolute Auto 400 /uL (0-900); Monocytes Percent Auto 7.9 % (3-14); Neutrophils Absolute Auto 3800 /uL (1500-7000); Neutrophils Percent Auto 71.9 % (50-75); Platelet Count 202 X10^3/uL (150-400); Red Blood Cell Count 4.18 X10^6/uL (4.5-5.9); Red Cell Distribution Width 14.3 % (11.6-14.8); White Blood Cell Count 5.3 X10^3/uL (4.5-11.0)
[2024-10-10 10:19] LABS: Cholesterol 199 mg/dL (140-199); HDL Cholesterol 53 mg/dL (40-60); LDL Cholesterol Calculated 121 mg/dL (<100); Triglycerides 123 mg/dL (35-150)
[2024-10-10 10:21] LABS: Hemoglobin A1C% w Est Avg Glu 5.1 % (4.0-6.0)
[2024-10-10 10:48] LABS: TSH w/ Reflex to FT4 < 0.02 uIU/mL (0.47-4.68)
[2024-10-10 11:20] LABS: Free T4, Direct Thyroxine 2.58 ng/dL (0.78-2.19)
== END ==
PROVIDERS: PCP Family Medicine; Referring Provider Internal Medicine Cardiovascular Disease; Visit Provider Internal Medicine Cardiovascular Disease
DX: I48.91 Unspecified atrial fibrillation (principal); Z13.1 Encounter for screening for diabetes mellitus; Z13.220 Encounter for screening for lipoid disorders
CPT/HCPCS: 36415; 80061; 83036; 84439; 84443; 85025

== ENCOUNTER → 2025-02-20 12:30 | Outpatient (CLI) | payer MEDICARE, OTHER, SELFPAY ==
[2024-08-06 09:58] VITALS: BMI 25.0
[2025-02-20 14:08] LABS: Free T3, Triiodothyronine Free 3.15 pg/mL (2.77-5.27); Free T4, Direct Thyroxine 1.96 ng/dL (0.78-2.19)
[2025-02-20 14:22] LABS: Thyroid Stimulating Hormone < 0.015 uIU/mL (0.47-4.68)
== END ==
PROVIDERS: PCP Family Medicine; Referring Provider Family Medicine; Visit Provider Family Medicine
DX: E05.90 Thyrotoxicosis, unspecified without thyrotoxic crisis or storm (principal)
CPT/HCPCS: 36415; 83520; 84439; 84443; 84445; 84481

== ENCOUNTER → 2025-03-10 13:55 | Outpatient (CLI) | payer MEDICARE, OTHER, SELFPAY ==
[2024-08-06 09:58] VITALS: BMI 25.0
[2025-03-10 15:21] LABS: Alanine Aminotransferase 26 IU/L (<50); Albumin 4.1 g/dL (3.5-5.0); Albumin Globulin Ratio 1.7 (1.0-2.8); Alkaline Phosphatase 51 U/L (38-126); Blood Urea Nitrogen 25 mg/dL (9-20); Calcium 8.8 mg/dL (8.4-10.2); Carbon Dioxide 25 mmol/L (22-32); Chloride 101 mmol/L (98-107); Estimated Glomerular Filt Rate > 60 mL/min (>60); Globulin 2.4 g/dL (1.7-4.1); Glucose 76 mg/dL (70-99); HEMOLYSIS < 15 (0-50); Potassium 4.2 mmol/L (3.4-5.1); Sodium 136 mmol/L (137-145); Total Protein 6.5 g/dL (6.3-8.2)
[2025-03-10 15:51] LABS: Prostate Specific Antigen < 0.064 ng/mL (0.10-4.00)
== END ==
PROVIDERS: PCP Family Medicine; Referring Provider Urology; Visit Provider Urology
DX: R97.20 Elevated prostate specific antigen [PSA] (principal); N40.1 Benign prostatic hyperplasia with lower urinary tract symptoms
CPT/HCPCS: 36415; 80053; 84153